=== PATIENT | female | born 1965 ===

== ENCOUNTER 2017-05-13 13:42 | Emergency (ER) | payer MEDICAID, OTHER ==
[2017-05-13 13:45] VITALS: BMI 45.7
[2017-05-13 13:59] VITALS: RESP 20
[2017-05-13] MEDS ORDERED: Sodium Chloride 0.9% 1,000 ML IV STA (14:20)
[2017-05-13] MEDS ORDERED: Levalbuterol 1.25 MG/3 ML Inhal Soln UD IH STA ×2 (14:20→14:21)
[2017-05-13] MEDS ORDERED: Ipratropium 0.02% Inhal Soln (0.5 mg/2.5 ml) UD IH STA ×2 (14:21)
[2017-05-13] MEDS ORDERED: guaiFENesin 200 mg/10 ml Syrup UD PO STA (14:21)
--- NOTE | 2017-05-13 14:45 | ED PDOC ---
Arrival/HPI - General Chief Complaint: Shortness Of Breath Time Seen by Provider: 05/13/17 13:47 Historian: Patient - History of Present Illness Narrative History of Present Illness (Text): 05/13/17 14:12 52 year old female, whose past medical history includes asthma, diabetes, anxiety, and hypertension, presents to the emergency department complaining of weakness for 1 week. Patient also experiences nausea, vomiting (yesterday), diarrhea (on and off), throat pain, fever, cough, asthma, abdominal pain, chest tightness (which feels like asthma), and urinary output changes. Patient denies of any sick contacts, recent travel, dysuria, hematuria, or any other complaints or information at this time. Patient mentions she uses an inhaler and shortness of breath worsens when ambulating. Blood sugar last measured at 250. No PMD Past Medical History - Provider Review Nursing Documentation Reviewed: Yes - Travel History Have you recently traveled outside [place] w/in the past 3 mons?: No - Infectious Disease Hx of Infectious Diseases: None - Tetanus Immunization Tetanus Immunization: Unknown - Reproductive Menopause: Yes - Cardiac Hx Cardiac Disorders: Yes Hx Hypertension: Yes - Pulmonary Hx Respiratory Disorders: Yes Hx Asthma: Yes - Neurological Hx Neurological Disorder: No - HEENT Hx HEENT Disorder: No - Renal Hx Renal Disorder: No - Endocrine/Metabolic Hx Endocrine Disorders: Yes Hx Diabetes Mellitus Type 2: Yes - Hematological/Oncological Hx Blood Disorders: No - Integumentary Hx Dermatological Disorder: No - Musculoskeletal/Rheumatological Hx Musculoskeletal Disorders: No - Gastrointestinal Hx Gastrointestinal Disorders: No - Genitourinary/Gynecological Hx Genitourinary Disorders: No - Psychiatric Hx Psychophysiologic Disorder: Yes Hx Anxiety: Yes Hx Bipolar Disorder: No Hx Depression: Yes Hx Emotional Abuse: No Hx Hallucinations: No Hx Panic Disorder: No Hx Post Traumatic Stress Disorder: No Hx Psychosis: No Hx Physical Abuse: No Hx Schizophrenia: No Hx Sexual Abuse: No Hx Substance Use: No - Past Surgical History Past Surgical History: No Previous - Surgical History Hx Section: Yes - Anesthesia Hx Anesthesia: Yes Hx Anesthesia Reactions: No Hx Malignant Hyperthermia: No - Suicidal Assessment Feels Threatened In Home Enviroment: No Family/Social History - Physician Review Nursing Documentation Reviewed: Yes Family/Social History: No Known Family HX Smoking Status: Never Smoked Hx Alcohol Use: No Hx Substance Use: No Hx Substance Use Treatment: No Allergies/Home Meds Allergies/Adverse Reactions: Allergies No Known Allergies Allergy (Verified 09/05/16 11:16) Home Medications: Home Meds Medication Instructions Recorded Confirmed Quetiapine Fumarate [Seroquel] 200 mg PO HS 04/27/12 05/13/17 Montelukast [Singulair] 10 mg PO DAILY 09/08/13 05/13/17 Metformin HCl [Fortamet] 1,000 mg PO BID 09/04/15 05/13/17 clonazePAM [Klonopin] 1 tab PO HS 09/04/15 05/13/17 Clonazepam 1 mg PO DAILY 01/05/16 05/13/17 Sertraline [Zoloft] 50 mg PO HS 01/05/16 05/13/17 Review of Systems - Physician Review All systems were reviewed & negative as marked: Yes - Review of Systems Constitutional: Fevers, Other (weakness) ENT: Sore Throat (throat pain) Respiratory: SOB (worsens when ambulating), Cough Cardiovascular: Other (chest tight feeling like asthma). absent: Chest Pain Gastrointestinal: Abdominal Pain, Diarrhea (on and off diarrhea), Nausea, Vomiting (vomited yesterday) Genitourinary Female: Frequency. absent: Dysuria, Hematuria Skin: absent: Rash Neurological: absent: Headache Endocrine: absent: Diaphoresis Hemo/Lymphatic: absent: Adenopathy Physical Exam Vital Signs Reviewed: Yes Vital Signs Temp Pulse Resp BP Pulse Ox 05/13/17 13:43 98 F 87 20 132/95 H 99 Temperature: Afebrile Blood Pressure: Normal Pulse: Regular Respiratory Rate: Normal Appearance: Positive for: Well-Appearing, Non-Toxic Pain Distress: None Mental Status: Positive for: Alert and Oriented X 3 Finger Stick Blood Glucose: 148 - Systems Exam Head: Present: Atraumatic, Normocephalic Pupils: Present: PERRL Conjunctiva: Present: Normal Mouth: Present: Moist Mucous Membranes Pharnyx: Present: Normal. No: ERYTHEMA, EXUDATE Neck: Present: Normal Range of Motion Respiratory/Chest: Present: Wheezes (wheezing b/l diffusely) Cardiovascular: Present: Regular Rate and Rhythm, Normal S1, S2. No: Murmurs Abdomen: Present: Tenderness (mild tender to palpation to RUQ, RLQ, and LUQ on initial exam) Back: Present: Normal Inspection Upper Extremity: Present: Normal Inspection. No: Cyanosis, Edema Lower Extremity: Present: Normal Inspection. No: Edema Neurological: Present: GCS=15, CN II-XII Intact, Speech Normal Skin: Present: Warm, Dry, Normal Color. No: Rashes Psychiatric: Present: Alert, Oriented x 3, Normal Insight, Normal Concentration Medical Decision Making ED Course and Treatment: 05/13/17 14:18 Impression: 52 year old female with weakness, nausea, vomiting, diarrhea, fever , abdominal pain, and shortness of breath. Physical exam shows diffuse wheezing b/l; abdominal exam with mild ttp Plan: -- EKG -- Chest X-ray -- Labs -- Pepcid -- Robitussin -- Atrovert -- Xopenex -- Zofran -- Medrol -- IV Fluids -- Blodo Culture -- Urine Culture -- Urinalysis -- Reassess and disposition Prior Visits: Notes and results from previous visits were reviewed. Patient was last seen in the emergency department on 09/05/2016 for left elbow pain. Patient was discharged home. Progress Notes: EKG: Ordered, reviewed, and independently interpreted the EKG. Rate : 92 BPM Rhythm : NSR Interpretation : No ST-segment elevations or depressions, no T-wave inversions, normal intervals. Comparison : No previous EKG for comparison. 05/13/17 16:02 Patient's lungs clear to auscultation and abdomen is soft, nontender. Patient has no complaints at this time and reports resolution of abd pain and sob. 05/13/2017 16:21 Chest X-ray IMPRESSION: No active disease. Dictator: Daniel Darling MD 05/13/17 17:03 Patient with noted history with presentation of n/v/d and abdominal cramping. Labs are unremarkable. Given zofran, pepcid, and IVF as well as treatment for asthma, and patient experiencing full resolution of symptoms with entirely normal lung exam and resolution of any abdominal discomfort. Chest tightness was associated with cough and asthma symptoms and resolved with nebs with normal ekg and normal CE; doubt cardiac - will d/c home to f/u in the medical clinic and give script for prednisone and MDI, along with zantac and zofran PRN. - Lab Interpretations Lab Results: 05/13/17 14:00 05/13/17 14:00 Lab Results 05/13/17 15:25: Urine Color Yellow, Urine Appearance Clear, Urine pH 6.0, Ur Specific [place] 1.020, Urine Protein Negative, Urine Glucose (UA) >=1000, Urine Ketones Negative, Urine Blood Negative, Urine Nitrate Negative, Urine Bilirubin Negative, Urine Urobilinogen 0.2, Ur Leukocyte Esterase Negative 05/13/17 14:00: Sodium 141, Potassium 3.7, Chloride 104, Carbon Dioxide 21, Anion Gap 20, BUN 14, Creatinine 0.6 L, Est GFR ( Amer) > 60, Est GFR ( Non-Af Amer) > 60, Random Glucose 166 H, Calcium 9.5, Magnesium 1.5 L, Total Bilirubin 0.6, Direct Bilirubin 0.3, AST 32, ALT 29, Alkaline Phosphatase 86, Lactate Dehydrogenase 489, Total Creatine Kinase 77, Troponin I < 0.01, NT-Pro- B Natriuret Pep 40.3, Total Protein 7.2, Albumin 4.4, Globulin 2.9, Albumin/ Globulin Ratio 1.5, Lipase 91 05/13/17 14:00: PT 12.5 H, INR 1.16 H, APTT 28.9 05/13/17 14:00: WBC 6.5 D, RBC 5.19, Hgb 14.3, Hct 41.8, MCV 80.5, MCH 27.6, MCHC 34.2, RDW 14.2, Plt Count 262, MPV 10.2, Gran % 60.2, Lymph % (Auto) 33.6, [place] % (Auto) 5.4, Eos % (Auto) 0.6 L, Baso % (Auto) 0.2, Gran # 3.89, Lymph # 2.2, [place] # 0.4, Eos # 0.0, Baso # 0.01 05/13/17 13:55: POC Glucose (mg/dL) 148 H I have reviewed the lab results: Yes - RAD Interpretation Radiology Orders: 05/13/17 14:19 CHEST PORTABLE [RAD] Stat - Medication Orders Current Medication Orders: Discontinued Medications Famotidine (Pepcid) 20 mg IVP STAT STA Stop: 05/13/17 14:21 Last Admin: 05/13/17 14:43 Dose: 20 mg IVP Administration Document 05/13/17 14:43 SRE (Rec: 05/13/17 14:43 SRE [id number]) Charges for Administration # of IVP Administrations 1 Guaifenesin (Robitussin) 400 mg PO ONCE STA Stop: 05/13/17 14:22 Last Admin: 05/13/17 14:44 Dose: 400 mg Sodium Chloride (Sodium Chloride 0.9%) 1,000 mls @ 999 mls/hr IV .Q1H1M STA Stop: 05/13/17 15:20 Last Admin: 05/13/17 14:43 Dose: 999 mls/hr eMAR Start Stop Document 05/13/17 14:43 SRE (Rec: 05/13/17 14:43 SRE [id number]) Intravenous Solution Start Date 05/13/17 Start Time 14:43 End Date 05/13/17 End time 15:45 Total Infusion Time 62 Magnesium Sulfate 2 gm/ Sodium (Chloride) 104 mls @ 102 mls/hr IVPB ONCE STA Stop: 05/13/17 16:26 Last Admin: 05/13/17 15:39 Dose: 102 mls/hr eMAR Start Stop Document 05/13/17 15:39 SRE (Rec: 05/13/17 15:39 SRE [id number]) Intravenous Solution Start Date 05/13/17 Start Time 15:39 End Date 05/13/17 End time 16:40 Total Infusion Time 61 Ipratropium [place] (Atrovent) 0.5 mg IH STAT STA Stop: 05/13/17 14:22 Last Admin: 05/13/17 15:08 Dose: 0.5 mg Ipratropium [place] (Atrovent) 0.5 mg IH STAT STA Stop: 05/13/17 14:22 Last Admin: 05/13/17 14:44 Dose: 0.5 mg Levalbuterol HCl (Xopenex) 1.25 mg IH STAT STA Stop: 05/13/17 14:21 Last Admin: 05/13/17 15:08 Dose: 1.25 mg Levalbuterol HCl (Xopenex) 1.25 mg IH STAT STA Stop: 05/13/17 14:22 Last Admin: 05/13/17 14:44 Dose: 1.25 mg Methylprednisolone (Solu-Medrol) 125 mg IVP STAT STA Stop: 05/13/17 14:20 Last Admin: 05/13/17 14:45 Dose: 125 mg IVP Administration Document 05/13/17 14:45 SRE (Rec: 05/13/17 14:45 SRE [id number]) Charges for Administration # of IVP Administrations 1 Ondansetron HCl (Zofran Inj) 4 mg IVP STAT STA Stop: 05/13/17 14:21 Last Admin: 05/13/17 14:45 Dose: 4 mg IVP Administration Document 05/13/17 14:45 SRE (Rec: 05/13/17 14:45 SRE [id number]) Charges for Administration # of IVP Administrations 1 - Scribe Statement The provider has reviewed the documentation as recorded by the Danica Escudero Provider Scribe Attestation: All medical record entries made by the Scribe were at my direction and personally dictated by me. I have reviewed the chart and agree that the record accurately reflects my personal performance of the history, physical exam, medical decision making, and the department course for this patient. I have also personally directed, reviewed, and agree with the discharge instructions and disposition. Disposition/Present on Arrival - Present on Arrival Any Indicators Present on Arrival: No History of DVT/PE: No History of Uncontrolled Diabetes: No Urinary Catheter: No History of Decub. Ulcer: No History Surgical Site Infection Following: None - Disposition Have Diagnosis and Disposition been Completed?: Yes Diagnosis: Asthma exacerbation, Nausea, vomiting, and diarrhea Disposition: HOME/ ROUTINE Disposition Time: 17:10 Patient Plan: Discharge Condition: GOOD Discharge Instructions (ExitCare): Acute Nausea and Vomiting (ED), Abdominal Pain (ED), Acute Diarrhea (ED), Asthma (ED) Additional Instructions: Advance diet slowly as tolerated. Take the medications as prescribed. Drink plenty of fluids. Follow up in the medical clinic. Return to the emergency department if any new concerning symptoms. Prescriptions: Albuterol HFA [Ventolin HFA 90 mcg/actuation (8 g)] 2 puff IH Q4H #1 inhaler Ondansetron ODT [Zofran ODT] 1 tab PO Q8H PRN #6 odt PRN Reason: Nausea/Vomiting predniSONE [Prednisone] 2 tab PO DAILY #10 tab Ranitidine HCl [Zantac] 1 tab PO BID #30 tablet Referrals: [facility] [place]] - Follow up with primary Forms: [employer] (Croatian)
[2017-05-13 15:04] LABS: BASO # 0.01 K/mm3 (0.0-2.0); BASO % 0.2 % (0.0-3.0); EOS % 0.6 % (1.5-5.0); GRAN # 3.89 (1.4-6.5); GRAN % 60.2 % (50.0-68.0); HEMATOCRIT 41.8 % (36.0-48.0); INR 1.16 (0.93-1.08); LYMPH # 2.2 (1.2-3.4); LYMPH % 33.6 % (22.0-35.0); MEAN CELL VOLUME 80.5 fl (80.0-105.0); MEAN CORPUSCULAR HEMOGLOBIN 27.6 pg (25.0-35.0); MEAN CORPUSCULAR HGB CONC 34.2 g/dl (31.0-37.0); MEAN PLATELET VOLUME 10.2 fl (7.0-11.0); MONO # 0.4 (0.1-0.6); MONO % 5.4 % (1.0-6.0); PARTIAL THROMBOPLASTIN TIME 28.9 Seconds (23.7-30.8); RED CELL DISTRIBUTION WIDTH 14.2 % (11.5-14.5); WHITE BLOOD COUNT 6.5 10^3/ul (4.5-11.0)
[2017-05-13 15:05] LABS: ALB/GLOB RATIO 1.5 (1.1-1.8); ALKALINE PHOSPHATASE 86 U/L (38-126); ALT/SGPT 29 U/L (7-56); AST/SGOT 32 U/L (14-36); BILIRUBIN,DIRECT 0.3 mg/dL (0.0-0.4); BILIRUBIN,TOTAL 0.6 mg/dL (0.2-1.3); BLOOD UREA NITROGEN 14 mg/dL (7-21); CALCIUM 9.5 mg/dL (8.4-10.5); CARBON DIOXIDE 21 mmol/L (21-33); CHLORIDE 104 mmol/L (98-107); GFR AFRICAN-AMERICAN > 60; GLUCOSE,RANDOM 166 mg/dL (70-110); LIPASE 91 U/L (23-300); MAGNESIUM 1.5 mg/dL (1.7-2.2); POTASSIUM 3.7 mmol/L (3.6-5.0); SODIUM 141 mmol/L (132-148); TOTAL PROTEIN 7.2 g/dL (5.8-8.3)
[2017-05-13 15:17] LABS: TROPONIN I < 0.01 ng/mL
[2017-05-13] MEDS ORDERED: Magnesium Sulfate 2 GM in Sodium Chloride 0.9% 100 ML IVPB STA (15:25)
[2017-05-13 15:45] LABS: URINE BILIRUBIN NEGATIVE (NEGATIVE); URINE BLOOD NEGATIVE (NEGATIVE); URINE GLUCOSE (UA) >=1000 mg/dL (NEGATIVE); URINE KETONE NEGATIVE (NEGATIVE); URINE LEUKOCYTE ESTERASE NEGATIVE Leu/uL (NEGATIVE); URINE PROTEIN NEGATIVE mg/dL (<30 mg/dL); URINE UROBILINOGEN 0.2 E.U./dL (<1 E.U./dL)
[2017-05-13 16:03] LABS: URINE APPEARANCE CLEAR (CLEAR); URINE COLOR YELLOW (YELLOW)
--- NOTE | 2017-05-13 16:23 | RAD ---
HISTORY: sob COMPARISON: 01/05/2016 FINDINGS: LUNGS: No active pulmonary disease. PLEURA: No significant pleural effusion identified, no pneumothorax apparent. CARDIOVASCULAR: Normal. OSSEOUS STRUCTURES: No significant abnormalities. VISUALIZED UPPER ABDOMEN: Normal. OTHER FINDINGS: None. IMPRESSION: No active disease.
[2017-05-13 17:11] VITALS: BP 112/71; PULSE 105; TEMP 98.1; O2SAT 96
--- NOTE | 2017-05-14 01:47 | CARD ---
APPROVED REPORT EKG Measurement Heart [id number] ID [id number] <Conclusion> Normal sinus rhythm Normal ECG
== END 2017-05-13 17:12 | disposition home or self-care (01) ==
LOC: ED 13:42
DX: J45.901 Unspecified asthma with (acute) exacerbation (principal); R11.2 Nausea with vomiting, unspecified; R19.7 Diarrhea, unspecified
CPT/HCPCS: 71010; 80053; 81003; 82248; 82550; 82948; 83615; 83690; 83735; 83880; 84484; 85025; 85610; 85730; 87040; 87086; 93005; 96361; 96365; 96375; 99284; J2405; J2930; J3475; J7040

== ENCOUNTER 2017-05-20 15:27 | Inpatient (IN) | payer MEDICAID ==
[2017-05-20] MEDS ORDERED: Sodium Chloride 0.9% 1,000 ML IV STA (16:02)
[2017-05-20] MEDS ORDERED: Albuterol-Ipratrop 3 mg / 0.5 (3 ml) UD IH STA (16:02)
[2017-05-20 16:17] LABS: BASO # 0.01 K/mm3 (0.0-2.0); BASO % 0.1 % (0.0-3.0); EOS # 0.1 (0.0-0.7); EOS % 0.7 % (1.5-5.0); GRAN # 5.57 (1.4-6.5); GRAN % 63.5 % (50.0-68.0); HEMATOCRIT 45.2 % (36.0-48.0); LYMPH # 2.4 (1.2-3.4); LYMPH % 27.9 % (22.0-35.0); MEAN CELL VOLUME 80.9 fl (80.0-105.0); MEAN CORPUSCULAR HGB CONC 33.4 g/dl (31.0-37.0); MEAN PLATELET VOLUME 9.7 fl (7.0-11.0); MONO # 0.7 (0.1-0.6); MONO % 7.8 % (1.0-6.0); RED CELL DISTRIBUTION WIDTH 14.8 % (11.5-14.5); WHITE BLOOD COUNT 8.8 10^3/ul (4.5-11.0)
[2017-05-20 16:30] LABS: INR 1.61 (0.93-1.08); PARTIAL THROMBOPLASTIN TIME 30.3 Seconds (23.7-30.8)
[2017-05-20 16:36] LABS: ALB/GLOB RATIO 1.6 (1.1-1.8); ALKALINE PHOSPHATASE 68 U/L (38-126); ALT/SGPT 26 U/L (7-56); AST/SGOT 37 U/L (14-36); BILIRUBIN,TOTAL 0.7 mg/dL (0.2-1.3); BLOOD UREA NITROGEN 17 mg/dL (7-21); CALCIUM 9.3 mg/dL (8.4-10.5); CARBON DIOXIDE 26 mmol/L (21-33); CHLORIDE 102 mmol/L (98-107); GFR AFRICAN-AMERICAN > 60; GLUCOSE,RANDOM 111 mg/dL (70-110); SODIUM 142 mmol/L (132-148)
[2017-05-20 16:45] LABS: ARTERIAL BLOOD GAS HCO3 25.9 mmol/L (21-28); ARTERIAL BLOOD GAS PH 7.42 (7.35-7.45)
[2017-05-20 16:50] LABS: TROPONIN I < 0.01 ng/mL
--- NOTE | 2017-05-20 16:57 | RAD ---
HISTORY: nausea COMPARISON: 05/13/2017 FINDINGS: LUNGS: No active pulmonary disease. PLEURA: No significant pleural effusion identified, no pneumothorax apparent. CARDIOVASCULAR: Mild cardiomegaly -unchanged OSSEOUS STRUCTURES: No significant abnormalities. VISUALIZED UPPER ABDOMEN: Normal. OTHER FINDINGS: None. IMPRESSION: No active pulmonary disease. Similar mild cardiomegaly
--- NOTE | 2017-05-20 17:21 | ED PDOC ---
Arrival/HPI - General Chief Complaint: GI Problem Time Seen by Provider: 05/20/17 15:45 Historian: Patient, Pr Manager - History of Present Illness Narrative History of Present Illness (Text): 05/20/17 17:21 Patient is a 52 yo female, past medical history of diabetes, presents to the ED complaining of "two weeks" of intermittent nausea. States that she has been vomiting continuously since this AM and it has been intermittent over the past several weeks. Reports shortness of breath as well intermitently. She denies feeling depressed or anxious. She denies any chest pain. Denies leg pain or swelling. Denies pleuritic pain. She reports occasional "acid" feeling in upper abdomen when she feels nauseous. This is not associated with exertion. Patient does report some dysuria and frequency for several days. No back or flank pain. Past Medical History - Infectious Disease Hx of Infectious Diseases: None - Tetanus Immunization Tetanus Immunization: Unknown - Reproductive Menopause: No - Cardiac Hx Cardiac Disorders: Yes Hx Hypertension: Yes - Pulmonary Hx Respiratory Disorders: Yes Hx Asthma: Yes - Neurological Hx Neurological Disorder: No - HEENT Hx HEENT Disorder: No - Renal Hx Renal Disorder: No - Endocrine/Metabolic Hx Endocrine Disorders: Yes Hx Diabetes Mellitus Type 2: Yes - Hematological/Oncological Hx Blood Disorders: No - Integumentary Hx Dermatological Disorder: No - Musculoskeletal/Rheumatological Hx Musculoskeletal Disorders: No - Gastrointestinal Hx Gastrointestinal Disorders: No - Genitourinary/Gynecological Hx Genitourinary Disorders: No - Psychiatric Hx Psychophysiologic Disorder: Yes Hx Anxiety: Yes Hx Bipolar Disorder: No Hx Depression: Yes Hx Emotional Abuse: No Hx Hallucinations: No Hx Panic Disorder: No Hx Post Traumatic Stress Disorder: No Hx Psychosis: No Hx Physical Abuse: No Hx Schizophrenia: No Hx Sexual Abuse: No Hx Substance Use: No - Past Surgical History Past Surgical History: No Previous - Surgical History Hx Section: Yes - Anesthesia Hx Anesthesia: Yes Hx Anesthesia Reactions: No Hx Malignant Hyperthermia: No - Suicidal Assessment Feels Threatened In Home Enviroment: No Family/Social History Family/Social History: Unknown Family HX Smoking Status: Never Smoked Hx Alcohol Use: No Hx Substance Use: No Hx Substance Use Treatment: No Allergies/Home Meds Allergies/Adverse Reactions: Allergies No Known Allergies Allergy (Verified 09/05/16 11:16) Home Medications: Home Meds Medication Instructions Recorded Confirmed Albuterol HFA [Ventolin HFA 90 60 mcg PO DAILY 05/20/17 05/20/17 mcg/actuation (8 g)] Benzonatate 200 mg PO DAILY 05/20/17 05/20/17 Citalopram [celeXA] 20 mg PO BID 05/20/17 05/20/17 Empagliflozin [Jardiance] 10 mg PO DAILY 05/20/17 05/20/17 Fluticasone Propionate [Flovent 50 mcg IH DAILY 05/20/17 05/20/17 Diskus] Fluticasone Propionate [Flovent 0.22 mg IH BID 05/20/17 05/20/17 Hfa] Loratadine [Claritin] 10 mg PO DAILY 05/20/17 05/20/17 Lovastatin 40 mg PO DAILY 05/20/17 05/20/17 Metformin HCl [Glucophage] 500 mg PO TID 05/20/17 05/20/17 Montelukast [Singulair] 10 mg PO DAILY 05/20/17 05/20/17 Ondansetron [Zofran] 4 mg PO DAILY 05/20/17 05/20/17 QUEtiapine [SEROquel] 50 mg PO HS 05/20/17 05/20/17 QUEtiapine [SEROquel] 200 mg PO HS 05/20/17 05/20/17 Ranitidine HCl [Zantac 300] 300 mg PO DAILY 05/20/17 05/20/17 clonazePAM [clonAZEPAM] 1 mg PO HS 05/20/17 05/20/17 Review of Systems - Review of Systems Constitutional: Fatigue. absent: Fevers Eyes: absent: Vision Changes ENT: absent: Hearing Changes Respiratory: SOB. absent: Cough Cardiovascular: absent: Chest Pain, MCNULTY Gastrointestinal: Nausea, Vomiting, Other ("acid"). absent: Abdominal Pain, Constipation, Diarrhea Genitourinary Female: Dysuria, Frequency. absent: Hematuria, Urine Output Changes, Vaginal Bleeding, Vaginal Discharge Musculoskeletal: absent: Back Pain Skin: absent: Rash Neurological: absent: Dizziness, Focal Weakness Endocrine: absent: Polyuria Hemo/Lymphatic: absent: Easy Bleeding Psychiatric: absent: Anxiety, Depression, Suicidal Ideation Physical Exam Vital Signs Reviewed: Yes Vital Signs Temp Pulse Resp BP Pulse Ox 05/20/17 18:46 82 18 136/68 97 05/20/17 15:34 98.7 F 80 18 132/65 94 L Temperature: Afebrile Respiratory Rate: Tachypneic Appearance: Positive for: Ill-Appearing Pain Distress: Moderate Mental Status: Positive for: Alert and Oriented X 3 Finger Stick Blood Glucose: 106 - Systems Exam Head: Present: Atraumatic, Normocephalic Pupils: Present: PERRL Mouth: Present: Moist Mucous Membranes Pharnyx: No: ERYTHEMA Nose (Internal): Present: Normal Inspection Neck: Present: Normal Range of Motion Respiratory/Chest: Present: Clear to Auscultation, Tachypneic. No: Respiratory Distress, Wheezes Cardiovascular: Present: Regular Rate and Rhythm, Murmurs Abdomen: Present: Tenderness (very mild periumbilical tenderness no rebound or guarding) Rectal: No: Gross Blood Back: No: CVA Tenderness Upper Extremity: No: Cyanosis, Edema Lower Extremity: No: Edema, CALF TENDERNESS Neurological: Present: Motor Func Grossly Intact, Normal Sensory Function Skin: Present: Warm Psychiatric: Present: Alert. No: Depressed Mood, Suicidal Ideation, Homicidal Ideation Medical Decision Making ED Course and Treatment: Patient on initial examination is tachypneic, nauseous. Her abdomen is soft and nontender. No wheezing noted on exam but patient complains of "asthma" in the past. She has no chest pain or pleuritic discomfort. No leg pain or swelling. Denies history of cardiac disease. Denies exertional symptoms. She is afebrile. With iv fluids and zofran symptoms improved but persisted. ABG reviewed. No respiratory distress noted on reexam. Tachypnea improved. Patient's lactate is elevated. On re-exam, very minimal mid abdominal discomfort. Review of last ER visit reveals patient had positive urine culture. Patient states she took her antibiotic course to completion. UA ordered here in ED. VBG lacatate also elevated. CODE SEPSIS initiated as suspicion of infection, hx of recent UTI, hx of tachypnea and elevated lactate. IV fluids continued and iv antibiotics initated. On re-exam, she states she has no pain. On re-exam, she states that she currently has no cough or chest pain, and shortness of breath has resolved and she wishes to go home. 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 Abnormal presentation and labs and patient's risk factors for infection, sepsis , and cardiac/pulmonary disease reviewed with patient, and she is agreeable to admisison. Case d/w hospitalist, accepts admission to her service. On re-evaluation, she states her nausea and shortness of breath have completely resolved. Patient's prior urine culture from 05/13 reviewed. Patient states she completed her ciprofloxacin prescription. She complains of persistent dysuria. No flank pain on exam. Review of urine micro from previous ER visit reveals sensitivity to Meropenam, this was ordered in ED. Patient noted to ambulate to restroom without difficulty. Walking back from bathroom she became nauseous and tachypneic. Lungs were clear. Blood pressure stable. She denied chest pain. I repeated EKG and this reveals normal sinus rhythm with no acute st elevations at 18:07. I will admit her to telemetry bed for also cardiac monitoring in addition to evaluation and treatment for sepsis. Blood pressure remains stable. I reviewed echo reading from 2016, patient at that time with normal LV function. BNP unremarkable. NO back pain. No leg pain or swelling. No smoking history. No prolonged travel or immobilization. Suspect sepsis, will monitor and evaluate for atypical cardiac presentation. Abdomen remains soft and nontender. Will obtain CT abdomen to assess for gi pathology/pyelo. Additional zofran ordered. At 1825, dyspnea again resolved. No chest pain or abdominal pain. CT abdomen results endorsed to admitting team for follow-up of results at 1826. Code sepsis team present in ED. CT angio of chest ordered to evaluate for PE due to persistent dyspnea with clear lung exam. She denies allergies. CT endorsed to admitting team. Case discussed with on-call Dr. Ragsdale, for cardiology consultation given her current presentation, to evaluation for CAD, valvular disease, pericardial effusion. No hypotension noted. Abdomen remains soft and nontender. Patient evaluated by cardiology in ED. - Lab Interpretations Lab Results: 05/20/17 16:05 05/20/17 16:05 Lab Results 05/20/17 17:45: Urine Color Yellow, Urine Appearance Sl cloudy, Urine pH 6.5, Ur Specific [place] 1.020, Urine Protein Trace H, Urine Glucose (UA) >=1000, Urine Ketones Negative, Urine Blood Small H, Urine Nitrate Negative, Urine Bilirubin Negative, Urine Urobilinogen 0.2, Ur Leukocyte Esterase Small H, Urine RBC 1 - 3, Urine WBC 10 - 15, Ur Epithelial Cells 6 - 8, Urine Bacteria Many 05/20/17 17:15: pO2 33, VBG pH 7.35, VBG pCO2 53.0, VBG HCO3 29.3 H, VBG Total CO2 30.9 H, VBG O2 Sat (Calc) 67.5 H, VBG Base Excess 2.5 H, VBG Potassium 3.9, Glucose 131 H, Lactate 3.6 H, FiO2 21.0, Sodium 140.0, Chloride 104.0, Venous Blood Potassium 3.9 05/20/17 16:42: pCO2 40, pO2 68.0 L, HCO3 25.9, ABG pH 7.42, ABG Total CO2 27.1 , ABG O2 Saturation 95.8, ABG Base Excess 1.3, ABG Potassium 3.3 L, Glucose 135 H, Lactate 3.9 H, FiO2 21.0, Sodium 141.0, Chloride 106.0, Arterial Blood Potassium 3.3 L 05/20/17 16:05: Phosphorus 4.2, Magnesium 1.8 05/20/17 16:05: Sodium 142, Potassium 4.0, Chloride 102, Carbon Dioxide 26, Anion Gap 18, BUN 17, Creatinine 0.8, Est GFR ( Amer) > 60, Est GFR (Non- Af Amer) > 60, Random Glucose 111 H, Calcium 9.3, Total Bilirubin 0.7, AST 37 H , ALT 26, Alkaline Phosphatase 68, Lactate Dehydrogenase 535, Total Creatine Kinase 44, Troponin I < 0.01, NT-Pro-B Natriuret Pep 27.7, Total Protein 7.0, Albumin 4.3, Globulin 2.7, Albumin/Globulin Ratio 1.6 05/20/17 16:05: PT 17.4 H, INR 1.61 H, APTT 30.3 05/20/17 16:05: WBC 8.8 D, RBC 5.59, Hgb 15.1, Hct 45.2, MCV 80.9, MCH 27.0, MCHC 33.4, RDW 14.8 H, Plt Count 300, MPV 9.7, Gran % 63.5, Lymph % (Auto) 27.9 , Saline % (Auto) 7.8 H, Eos % (Auto) 0.7 L, Baso % (Auto) 0.1, Gran # 5.57, Lymph # 2.4, Saline # 0.7 H, Eos # 0.1, Baso # 0.01 - RAD Interpretation Radiology Orders: 05/20/17 16:01 CHEST PORTABLE [RAD] Stat - EKG Interpretation Interpreted by ED Physician: Yes Type: 12 lead EKG - Medication Orders Current Medication Orders: Albuterol/Ipratropium (Duoneb 3 Mg/0.5 Mg (3 Ml) Ud) 3 ml IH Q4 PRN PRN Reason: Shortness of Breath Atorvastatin Calcium (Lipitor) 10 mg PO DIN MAJO Benzonatate (Tessalon Perles) 200 mg PO DAILY MAJO Citalopram Hydrobromide (Celexa) 20 mg PO BID MAJO Clonazepam (Klonopin) 1 mg PO HS MAJO PRN Reason: Protocol Famotidine (Pepcid) 40 mg PO DAILY MAJO Meropenem 1g/NS 100mL IVPB (Meropenem 1g/Ns 100ml Ivpb) 1 gm in 100 mls @ 100 mls/hr IVPB STAT STA PRN Reason: Protocol Stop: 05/20/17 19:08 Last Admin: 05/20/17 18:52 Dose: 100 mls/hr eMAR Start Stop Document 05/20/17 18:52 MS (Rec: 05/20/17 18:53 MS [id number]) Intravenous Solution Start Date 05/20/17 Start Time 18:53 End Date 05/20/17 End time 19:53 Total Infusion Time 60 Insulin Human Lispro (Humalog Low) 0 units SC ACHS MAJO PRN Reason: Protocol Loratadine (Claritin) 10 mg PO DAILY MAJO Montelukast Sodium (Singulair) 10 mg PO DAILY MAJO Non-Formulary Medication (Fluticasone Propionate [Flovent Hfa]) 0.22 mg IH BID MAJO Ondansetron HCl (Zofran Tab) 4 mg PO DAILY MAJO Pantoprazole Sodium (Protonix Inj) 40 mg IVP DAILY MAJO Quetiapine Fumarate (Seroquel) 200 mg PO HS MAJO Discontinued Medications Albuterol/Ipratropium (Duoneb 3 Mg/0.5 Mg (3 Ml) Ud) 3 ml IH STAT STA Stop: 05/20/17 16:03 Last Admin: 05/20/17 16:15 Dose: 3 ml Sodium Chloride (Sodium Chloride 0.9%) 1,000 mls @ 1,000 mls/hr IV .Q1H STA Stop: 05/20/17 17:01 Last Admin: 05/20/17 16:14 Dose: 1,000 mls/hr eMAR Start Stop Document 05/20/17 16:14 MR (Rec: 05/20/17 16:14 [id number]) Intravenous Solution Start Date 05/20/17 Start Time 16:14 End Date 05/20/17 End time 17:14 Total Infusion Time 60 Sodium Chloride 1,900 ml/ IV (SUPPLIES) 1,900 mls @ 5,932.98 mls/hr IV ONCE ONE PRN Reason: 60 ML/KG/HR Stop: 05/20/17 18:06 Last Admin: 05/20/17 18:19 Dose: 5,932.98 mls/hr eMAR Start Stop Document 05/20/17 18:19 MR (Rec: 05/20/17 18:19 [id number]) Intravenous Solution Start Date 05/20/17 Start Time 18:19 End Date 05/20/17 End time 18:40 Total Infusion Time 21 Ondansetron HCl (Zofran Inj) 4 mg IVP ONCE ONE Stop: 05/20/17 16:03 Last Admin: 05/20/17 16:14 Dose: 4 mg IVP Administration Document 05/20/17 16:14 MR (Rec: 05/20/17 16:14 [id number]) Charges for Administration # of IVP Administrations 1 Ondansetron HCl (Zofran Inj) 4 mg IVP ONCE ONE Stop: 05/20/17 18:04 Last Admin: 05/20/17 18:19 Dose: 4 mg IVP Administration Document 05/20/17 18:19 MR (Rec: 05/20/17 18:19 [id number]) Charges for Administration # of IVP Administrations 1 Disposition/Present on Arrival - Present on Arrival Any Indicators Present on Arrival: No History of DVT/PE: No History of Uncontrolled Diabetes: No Urinary Catheter: No History of Decub. Ulcer: No History Surgical Site Infection Following: None - Disposition Have Diagnosis and Disposition been Completed?: Yes Diagnosis: UTI (urinary tract infection), Sepsis, Vomiting, Dyspnea Disposition: HOSPITALIZED Disposition Time: 17:20 Patient Plan: Admission, Telemetry Patient Problems: Current Active Problems Problem Status Onset Dyspnea Acute Sepsis Acute UTI (urinary tract infection) Acute Vomiting Acute Condition: SERIOUS
[2017-05-20 17:23] LABS: VENOUS BLOOD GAS BASE EXCESS 2.5 mmol/L (0.0-2.0); VENOUS BLOOD PH 7.35 (7.32-7.43)
[2017-05-20] MEDS ORDERED: levoFLOXacin 750 mg in D5W 150 ML BAG IVPB STA (17:45)
[2017-05-20 18:04] LABS: PH,URINE 6.5 (4.7-8.0); URINE BILIRUBIN NEGATIVE (NEGATIVE); URINE BLOOD SMALL (NEGATIVE); URINE GLUCOSE (UA) >=1000 mg/dL (NEGATIVE); URINE KETONE NEGATIVE (NEGATIVE); URINE LEUKOCYTE ESTERASE SMALL Leu/uL (NEGATIVE); URINE PROTEIN TRACE mg/dL (<30 mg/dL); URINE UROBILINOGEN 0.2 E.U./dL (<1 E.U./dL)
[2017-05-20 18:06] LABS: URINE APPEARANCE SL CLOUDY (CLEAR); URINE COLOR YELLOW (YELLOW)
[2017-05-20] MEDS ORDERED: Meropenem 1g/NS 100mL IVPB 1 GM/100 ML PIGGYBACK IVPB STA ×2 (18:07→18:09)
[2017-05-20 18:20] LABS: URINE BACTERIA MANY (NEG)
[2017-05-20 18:24] LABS: MAGNESIUM 1.8 mg/dL (1.7-2.2); PHOSPHOROUS 4.2 mg/dL (2.5-4.5)
[2017-05-20] MEDS ORDERED: Albuterol-Ipratrop 3 mg / 0.5 (3 ml) UD IH PRN (18:55)
--- NOTE | 2017-05-20 19:04 | CARD ---
APPROVED REPORT EKG Measurement Heart [id number] <Conclusion> Normal sinus rhythm Normal ECG
--- NOTE | 2017-05-20 19:08 | CP.PCM.HP ---
<Chetan Henao - Last Filed: 05/20/17 19:27> History of Present Illness - History of Present Illness History of Present Illness: This is a 52 year old with a past medical history of hyperlipidemia, copd, type 2 diabetes mellitus and unspecified psych history who presents to the emergency department complaining of two weeks of nausea and multiple non-bloody, non- bilious vomiting episodes. The patient in conjunction with the the initial complaints reports acid reflux that's not associated with food intake. The patient reports taking Ranitidine with some relief. The patient also reports diffuse abdominal pain that she rates a 5/10 in severity. The patient denies any alleviating or modifying factors. The patient also reports dyspnea on exertion that's been occurring since the past two weeks. The patient reports she usually can walk twenty or thirty minutes without stopping. The patient now reports having to pause after a couple of blocks. The patient denies any fevers, chills, chest pain, lightheadedness, dizziness, changes in vision, sore throat, headache, syncopal episodes, orthopnea, lower extremity swelling or any other complaints. PMD: Dr. Young PMedhx: See HPI Medications: Metformin, Loratadine, Jardiance, Singular, Lovastatin, Ranitidine , Benzonatate, Ondansetron, Seroquel, Clonazepam and Citalopram Surgery hx: 2 sections, Umbilical hernia repair Allergies: Seasonal Social: Denies social or smoking history. Denies illicit drug use. Present on Admission - Present on Admission Any Indicators Present on Admission: No Review of Systems - Constitutional Constitutional: As Per HPI - EENT Eyes: As Per HPI Ears: As Per HPI Nose/Mouth/Throat: As Per HPI - Breasts Breasts: As Per HPI - Cardiovascular Cardiovascular: As Per HPI - Respiratory Respiratory: As Per HPI - Gastrointestinal Gastrointestinal: As Per HPI - Genitourinary Genitourinary: As Per HPI - Reproductive: Female Reproductive:Female: As Per HPI - Menstruation Menstruation: As Per HPI - Musculoskeletal Musculoskeletal: As Per HPI - Integumentary Integumentary: As Per HPI - Neurological Neurological: As Per HPI - Psychiatric Psychiatric: As Per HPI - Endocrine Endocrine: As Per HPI Past Patient History - Infectious Disease Hx of Infectious Diseases: None - Tetanus Immunizations Tetanus Immunization: Unknown - Past Social History Smoking Status: Never Smoked - CARDIAC Hx Cardiac Disorders: Yes Hx Hypertension: Yes - PULMONARY Hx Respiratory Disorders: Yes Hx Asthma: Yes - NEUROLOGICAL Hx Neurological Disorder: No - HEENT Hx HEENT Problems: No - RENAL Hx Chronic Kidney Disease: No - ENDOCRINE/METABOLIC Hx Endocrine Disorders: Yes Hx Diabetes Mellitus Type 2: Yes - HEMATOLOGICAL/ONCOLOGICAL Hx Blood Disorders: No - INTEGUMENTARY Hx Dermatological Problems: No - MUSCULOSKELETAL/RHEUMATOLOGICAL Hx Musculoskeletal Disorders: No - GASTROINTESTINAL Hx Gastrointestinal Disorders: No - GENITOURINARY/GYNECOLOGICAL Hx Genitourinary Disorders: No - PSYCHIATRIC Hx Psychophysiologic Disorder: Yes Hx Anxiety: Yes Hx Bipolar Disorder: No Hx Depression: Yes Hx Emotional Abuse: No Hx Hallucinations: No Hx Panic Symptoms: No Hx Post Traumatic Stress Disorder: No Hx Psychosis: No Hx Physical Abuse: No Hx Schizophrenia: No Hx Sexual Abuse: No Hx Substance Use: No - SURGICAL HISTORY Hx Section: Yes - ANESTHESIA Hx Anesthesia: Yes Hx Anesthesia Reactions: No Hx Malignant Hyperthermia: No Meds Allergies/Adverse Reactions: Allergies Allergy/AdvReac Type Severity Reaction Status Date / Time No Known Allergies Allergy Verified 09/05/16 11:16 Physical Exam - Head Exam Head Exam: ATRAUMATIC, NORMAL INSPECTION, NORMOCEPHALIC - Eye Exam Eye Exam: EOMI, Normal appearance, PERRL Pupil Exam: NORMAL ACCOMODATION, PERRL. absent: Irregular, Unequal - ENT Exam ENT Exam: Mucous Membranes Moist, Normal Exam. absent: TM's Normal Bilaterally - Neck Exam Neck exam: Positive for: Normal Inspection. Negative for: Lymphadenopathy, Thyromegaly - Respiratory Exam Respiratory Exam: Clear to Auscultation Bilateral, NORMAL BREATHING PATTERN. absent: Accessory Muscle Use, Chest Wall Tenderness, Respiratory Distress - Cardiovascular Exam Cardiovascular Exam: REGULAR RHYTHM, RRR, +S1, +S2. absent: Gallop, Rubs - GI/Abdominal Exam GI & Abdominal Exam: Normal Bowel Sounds, Tenderness. absent: Diminished Bowel Sounds, Hypoactive Bowel Sounds, Organomegaly - Rectal Exam Rectal Exam: NORMAL INSPECTION - Back Exam Back exam: NORMAL INSPECTION. absent: CVA tenderness (L), CVA tenderness (R), paraspinal tenderness - Neurological Exam Neurological exam: Alert, CN II-XII Intact, Normal Gait, Oriented x3, Reflexes Normal - Psychiatric Exam Psychiatric exam: Normal Affect, Normal Mood - Skin Skin Exam: Dry, Intact, Normal Color Results - Vital Signs Recent Vital Signs: Last Vital Signs Temp 98.7 F 05/20/17 15:34 Pulse 82 05/20/17 18:46 Resp 18 05/20/17 18:46 BP 136/68 05/20/17 18:46 Pulse Ox 97 05/20/17 18:46 - Labs Result Diagrams: 05/20/17 16:05 05/20/17 16:05 Assessment & Plan - Assessment and Plan (Free Text) Assessment: This is a 52 year old female with past medical history of hyperlipidemia, copd, type 2 diabetes and unspecified psych condition who is being admitted for dyspnea on exertion and sepsis. Plan: 1. UTI -Urine Culture at last visit grew Klebsiella. Patient started on IV Cefepime. -Blood cultures and urine cultures ordered. F/U with results tomorrow. -Lactic acid level 3.6. Recheck in the A.M. 2.SOB with exertion vs. anxiety -Patient has new onset SOB on exertion. -CXR in the E.D. was negative for any active disease. -CT angiography ordered. Will f/u with rec's tomorrow. -Cardio consulted. F/U with rec's tomorrow. 3.Abdominal pain 2/2 to vomiting -Zofran started. -Physical Exam diffused abdominal tenderness noted. Negative Naylor's sign. -Abdomen and pelvis Ct Ordered. Will f/u with rec's tomorrow. 4. Episodic Tachycardia -Per E.D. patient has episodes of Tachycardia. Patient presently not tachycardic. -Ekg shows NSR with no acute ST-T changes. -Cardio consulted. F/U with rec's tomorrow. 5. Hyperlipidemia -Continue home meds. 6.Diabetes -ISS -Accucheck ACHS GI ppx -Protonix DVT ppx -SCD's <YuDianecalin - Last Filed: 05/21/17 04:09> Results - Vital Signs Recent Vital Signs: Last Vital Signs Temp 98.5 F 05/21/17 00:12 Pulse 87 05/21/17 02:00 Resp 22 05/21/17 00:12 BP 135/75 05/21/17 00:12 Pulse Ox 99 05/20/17 20:58 - Labs Result Diagrams: 05/20/17 16:05 10/11/17 16:05 Labs: Laboratory Results - last 24 hr 05/20/17 05/20/17 20:15 23:07 pO2 80 H VBG pH 7.39 VBG pCO2 45.0 VBG HCO3 27.2 VBG Total CO2 28.6 H VBG O2 Sat (Calc) 97.6 H VBG Base Excess 1.7 VBG Potassium 3.6 Sodium 140.0 Chloride 106.0 Glucose 124 H Lactate 2.2 H FiO2 21.0 POC Glucose (mg/dL) 95 Venous Blood Potassium 3.6 Attending/Attestation - Attestation I have personally seen and examined this patient.: Yes I have fully participated in the care of the patient.: Yes I have reviewed all pertinent clinical information: Yes Notes (Text): 05/21/17 04:07 Patient was seen when she was in the ER . Agree with histor, physical examination, assessment and plan. Patient was seen when she was in bed # 6 in the ER. She speaks Yoruba. Knows little [place]. Medical record was reviewed. Agree with history, physical examination, assessment and plan. Following are my impressions. UTI,Hematuria, Sepsis, elevated lactic acid level, obesity, non-insulin dependent DM, mild intermittent asthma without complications,mild elevation of AST, Sinus tachycardia, generalized abdominal pain, nausea, vomiting, sob on exertion, anxiety , depression, history of dizziness, history of syncope, history of , history of lapartomy, family history of breast cancer(mother),family history of thyroid cancer(mother) .
[2017-05-20 20:29] LABS: VENOUS BLOOD GAS BASE EXCESS 1.7 mmol/L (0.0-2.0); VENOUS BLOOD PH 7.39 (7.32-7.43)
--- NOTE | 2017-05-20 20:29 | CT ---
EXAM: CT Angiography Chest With Intravenous Contrast CLINICAL HISTORY: 52 years old, female; Signs and symptoms; Shortness of breath; Additional info: R/O pe TECHNIQUE: Axial computed tomographic angiography images of the chest with intravenous contrast using pulmonary embolism protocol. All CT scans at this facility use one or more dose reduction techniques, viz.: automated exposure control; ma/kV adjustment per patient size (including targeted exams where dose is matched to indication; i.e. head); or iterative reconstruction technique. MIP reconstructed images were created and reviewed. Coronal and sagittal reformatted images were created and reviewed. CONTRAST: 51.2 mL of omnipaque 350 administered intravenously. COMPARISON: DX - CHEST PORTABLE 05/20/2017 4:39:51 PM FINDINGS: Limitations: Motion artifact - mild. Suboptimal timing of bolus. Pulmonary arteries: No definite pulmonary embolism. Aorta: Minimal atherosclerotic disease. No aneurysm. Lungs: No consolidation. Pleural space: No significant effusion. No pneumothorax. Heart: Borderline cardiomegaly. Small pericardial effusion. Bones/joints: No acute fracture. No dislocation. Soft tissues: Unremarkable. Lymph nodes: No pathologically enlarged lymph nodes. Upper abdomen: See abdomen CT report for additional details. IMPRESSION: 1. No definite CT evidence of pulmonary embolism. 2. Incidental/non-acute findings are described above.
--- NOTE | 2017-05-20 20:49 | CT ---
EXAM: CT Abdomen and Pelvis Without Intravenous Contrast CLINICAL HISTORY: 52 years old, female; Signs and symptoms; Vomiting; Prior surgery; Surgery date: 6+ months; Surgery type: Patient states she had 2 c-sections and 2 other surgeries, but unable to identify what they were; Additional info: Persistent vomiting, ? pyelo TECHNIQUE: Axial computed tomography images of the abdomen and pelvis without intravenous contrast. All CT scans at this facility use one or more dose reduction techniques, viz.: automated exposure control; ma/kV adjustment per patient size (including targeted exams where dose is matched to indication; i.e. head); or iterative reconstruction technique. Coronal and sagittal reformatted images were created and reviewed. COMPARISON: CT - ABD PELVIS W/O PO OR IV CONT 08/29/2015 2:36:53 PM FINDINGS: Limitations: Lack of intravenous contrast. Lower thorax: See chest CT report for additional details. ABDOMEN: Liver: Small calcification. Gallbladder and bile ducts: No calcified stones. No ductal dilation. Pancreas: Unremarkable. No ductal dilation. Spleen: No splenomegaly. Adrenals: No mass. Kidneys and ureters: No renal calculi. No hydronephrosis. Stomach and bowel: Scattered diverticula within colon. No associated inflammatory stranding. No definite mural thickening. No obstruction. Appendix: No findings to suggest acute appendicitis. PELVIS: Bladder: Unremarkable. No stones. Reproductive: Slightly lobulated uterus, possibly related to underlying fibroids. ABDOMEN and PELVIS: Intraperitoneal space: No significant fluid collection. No free air. Bones/joints: No acute fracture. Soft tissues: Unremarkable. Vasculature: Minimal atherosclerotic disease. No aneurysm. Lymph nodes: No pathologically enlarged lymph nodes. IMPRESSION: 1. Diverticulosis without definite CT evidence of diverticulitis. 2. Incidental/non-acute findings are described above.
[2017-05-20] MEDS ORDERED: Iohexol 350 MG/100 ML VIAL ONE (21:16)
[2017-05-20] MEDS ORDERED: Non Formulary Medication (Quetiapine [Seroquel] 50 MG) PO SCH (22:00)
--- NOTE | 2017-05-20 23:38 | CON ---
CARDIOLOGY CONSULTATION DATE: REASON FOR CONSULTATION: Cardiomegaly. HISTORY OF PRESENT ILLNESS: The patient is a 52-year-old female who presented to the emergency room because of intermittent nausea as well as abdominal discomfort. The patient did vomit in the Emergency Room and did experience shortness of breath and diaphoresis as she was walking to the bathroom. The patient is unaware of any prior cardiac history in the past. SOCIAL HISTORY: Nonsmoker. Nondrinker. MEDICATIONS: Claritin 10 mg once a day, albuterol inhaler q. 4 hours, Klonopin 1 mg at bedtime, Lipitor 10 mg once a day, Pepcid 40 mg p.o. once a day, Protonix 40 mg once a day, normal saline 125 mL an hour, and Zofran 4 mg p.o. once a day. PHYSICAL EXAMINATION GENERAL: The patient is moderately obese, female who does not appear to be in any respiratory distress. VITAL SIGNS: Blood pressure 136/68, heart rate 82, temperature 98.7, and respirations 18. HEENT: Normocephalic. CHEST: Clear. HEART: S1 and S2 regular. ABDOMEN: Mild epigastric tenderness. EXTREMITIES: No edema. LABORATORY DATA: Hemoglobin, hematocrit, white count, and platelet count are within normal limits. SMA-7 is within normal limits except for glucose of 111. One set of troponin is negative. INR is 1.61 and PTT is 30.3. EKG revealed sinus rhythm at a rate of 85. ASSESSMENT: 1. Cardiomegaly on chest x-ray. 2. Abdominal discomfort. 3. Hypertension and diabetes mellitus. RECOMMENDATIONS: Continue current albuterol inhaler, continue Lipitor, oral Pepcid, IV Protonix, and oral Zofran. I discussed the case with Emergency Room team. The patient will undergo CT angio of the chest, abdomen, and pelvis and will be admitted to telemetry. Obtain an echocardiogram in the a.m. to rule out pericardial effusion. Onel Alejandro MD
[2017-05-21 00:29] VITALS: BMI 40.5
--- NOTE | 2017-05-21 00:43 | PCM.SEPTIC ---
Sepsis Progress Note - Reassessment Type Date of Evaluation: 05/20/17 Time of Evaluation: 11:45 Reassessment Type: Non-invasive reassessment - Non Invasive Reassessment Were the most recent vital sign reviewed: Yes Vital Sign (Latest): Temp Pulse Resp BP Pulse Ox 98.5 F 74 22 135/75 99 05/21/17 00:12 05/21/17 00:12 05/21/17 00:12 05/21/17 00:12 05/20/17 20:58 Cardiovascular: Yes: Regular Rate, Rhythm. No: Gallop, JVD, Murmur, Irregularly Irregular Respiratory: Yes: Normal Breath Sounds. No: Accessory Muscle Use, Crackles, Rales, Rhonchi, Wheezing, Respiratory Distress Capillary Refill: Normal (Less than 2 sec) Pulses: Normal Radial, Normal Dorsalis Pedis, Normal Posterior Tibialis Skin: Normal Color, Warm
[2017-05-21] MEDS: Insulin Lispro (humaLOG) LOW Coverage SC SCH ×2 (00:54→21:28)
[2017-05-21] MEDS: Sodium Chloride 0.9% 1,000 ML IV SCH ×3 (02:27→21:46)
[2017-05-21 06:35] LABS: BASO # 0.01 K/mm3 (0.0-2.0); BASO % 0.2 % (0.0-3.0); EOS # 0.1 (0.0-0.7); EOS % 1.2 % (1.5-5.0); GRAN # 3.38 (1.4-6.5); GRAN % 52.6 % (50.0-68.0); HEMATOCRIT 38.9 % (36.0-48.0); LYMPH # 2.4 (1.2-3.4); LYMPH % 37.7 % (22.0-35.0); MEAN CELL VOLUME 81.9 fl (80.0-105.0); MEAN CORPUSCULAR HEMOGLOBIN 26.9 pg (25.0-35.0); MEAN CORPUSCULAR HGB CONC 32.9 g/dl (31.0-37.0); MEAN PLATELET VOLUME 9.4 fl (7.0-11.0); MONO # 0.5 (0.1-0.6); MONO % 8.3 % (1.0-6.0); RED CELL DISTRIBUTION WIDTH 15.1 % (11.5-14.5); WHITE BLOOD COUNT 6.4 10^3/ul (4.5-11.0)
[2017-05-21 07:00] LABS: ALB/GLOB RATIO 1.4 (1.1-1.8); ALKALINE PHOSPHATASE 61 U/L (38-126); ALT/SGPT 26 U/L (7-56); AST/SGOT 22 U/L (14-36); BILIRUBIN,TOTAL 0.6 mg/dL (0.2-1.3); BLOOD UREA NITROGEN 14 mg/dL (7-21); CALCIUM 8.2 mg/dL (8.4-10.5); CARBON DIOXIDE 24 mmol/L (21-33); CHLORIDE 109 mmol/L (98-107); GFR AFRICAN-AMERICAN > 60; GLUCOSE,RANDOM 100 mg/dL (70-110); SODIUM 141 mmol/L (132-148); TOTAL PROTEIN 5.5 g/dL (5.8-8.3)
[2017-05-21] MEDS ORDERED: Non Formulary Medication (Ranitidine Hcl [Zantac] 300 MG) PO SCH (10:00)
[2017-05-21] MEDS ORDERED: Non Formulary Medication (Empagliflozin [Jardiance] 10 MG) PO SCH (10:00)
[2017-05-21] MEDS ORDERED: Non Formulary Medication (Fluticasone Propionate [Flovent Diskus] 50 MCG) IH SCH (10:00)
[2017-05-21] MEDS ORDERED: LOVASTATIN 40 MG PO SCH (10:00)
[2017-05-21] MEDS ORDERED: BENZONATATE 200 MG PO SCH (10:00)
--- NOTE | 2017-05-21 11:16 | CARD ---
APPROVED REPORT EKG Measurement Heart [id number] <Conclusion> Normal sinus rhythm Normal ECG
--- NOTE | 2017-05-21 14:08 | CP.PCM.PN ---
<Michele Akins - Last Filed: 05/21/17 14:04> Subjective - Date & Time of Evaluation Date of Evaluation: 05/21/17 Time of Evaluation: 09:00 - Subjective Subjective: Dr. Medrano Service Pt was seen and examined at bedside. No acute complaints at this time. Pt had a code sepsis called yesterday on account of elevated lactate. Pt vitals have been stable. Pt denied fever, chills, any further sob, chest pains, abdominal pains, n/v/d/c or urinary symptoms. Objective - Vital Signs/Intake and Output Vital Signs (last 24 hours): Temp Pulse Resp BP Pulse Ox 97.8 F 65 20 91/52 L 97 05/21/17 06:00 05/21/17 10:00 05/21/17 06:00 05/21/17 06:00 05/21/17 06:00 Intake and Output: 05/21/17 05/21/17 06:59 18:59 Intake Total 1245 375 Balance 1245 375 - Medications Medications: Current Medications Albuterol/Ipratropium (Duoneb 3 Mg/0.5 Mg (3 Ml) Ud) 3 ml IH Q4 PRN PRN Reason: Shortness of Breath Atorvastatin Calcium (Lipitor) 10 mg PO DIN MAJO Benzonatate (Tessalon Perles) 200 mg PO DAILY [facility] Last Admin: 05/21/17 12:09 Dose: 200 mg Citalopram Hydrobromide (Celexa) 20 mg PO BID [facility] Last Admin: 05/21/17 12:08 Dose: 20 mg Clonazepam (Klonopin) 1 mg PO HS [facility] PRN Reason: Protocol Last Admin: 05/20/17 23:37 Dose: 1 mg Famotidine (Pepcid) 40 mg PO DAILY [facility] Last Admin: 05/21/17 12:05 Dose: 40 mg Sodium Chloride (Sodium Chloride 0.9%) 1,000 mls @ 125 mls/hr IV .Q8H [facility] Last Admin: 05/21/17 04:44 Dose: Not Given Insulin Human Lispro (Humalog Low) 0 units SC ACHS [facility] PRN Reason: Protocol Last Admin: 05/21/17 00:54 Dose: Not Given Loratadine (Claritin) 10 mg PO DAILY [facility] Last Admin: 05/21/17 12:07 Dose: 10 mg Montelukast Sodium (Singulair) 10 mg PO DAILY [facility] Last Admin: 05/21/17 12:07 Dose: 10 mg Non-Formulary Medication (Fluticasone Propionate [Flovent Hfa]) 0.22 mg IH BID [facility] Ondansetron HCl (Zofran Tab) 4 mg PO DAILY [facility] Pantoprazole Sodium (Protonix Inj) 40 mg IVP DAILY [facility] Quetiapine Fumarate (Seroquel) 200 mg PO HS [facility] Last Admin: 05/20/17 23:36 Dose: 200 mg - Labs Labs: 05/21/17 06:15 05/21/17 06:15 PT 17.4 Seconds (9.9-11.8) H 05/20/17 16:05 INR 1.61 (0.93-1.08) H 05/20/17 16:05 APTT 30.3 Seconds (23.7-30.8) 05/20/17 16:05 - Constitutional Appears: No Acute Distress - Head Exam Head Exam: ATRAUMATIC, NORMAL INSPECTION, NORMOCEPHALIC - Eye Exam Eye Exam: EOMI, Normal appearance, PERRL Pupil Exam: NORMAL ACCOMODATION, PERRL - ENT Exam ENT Exam: Mucous Membranes Moist, Normal Exam - Respiratory Exam Respiratory Exam: Decreased Breath Sounds, NORMAL BREATHING PATTERN - Cardiovascular Exam Cardiovascular Exam: REGULAR RHYTHM, +S1, +S2. absent: Murmur - GI/Abdominal Exam GI & Abdominal Exam: Soft, Normal Bowel Sounds. absent: Tenderness - Extremities Exam Extremities Exam: Full ROM, Normal Capillary Refill, Normal Inspection. absent : Joint Swelling, Pedal Edema - Neurological Exam Neurological Exam: Alert, Awake, CN II-XII Intact, Normal Gait, Oriented x3 - Psychiatric Exam Psychiatric exam: Normal Affect, Normal Mood - Skin Skin Exam: Dry, Intact, Normal Color, Warm Assessment and Plan - Assessment and Plan (Free Text) Assessment: This is a 52 year old female with past medical history of hyperlipidemia, copd, type 2 diabetes and unspecified psych condition who is being admitted for dyspnea on exertion and sepsis. 1. UTI -Urine Culture at last visit grew Klebsiella. Patient started on IV Cefepime. -Blood cultures and urine cultures ordered. F/U with results tomorrow. -Lactic acid downtrending, only suspected source at this time. 2.SOB with exertion vs. anxiety -Patient has new onset SOB on exertion. -CXR in the E.D. was negative for any active disease. -CT angiography negative for PE -Cardio consulted. FU ECHO, completed, pending read 3.Abdominal pain 2/2 to vomiting -Zofran started. -Physical Exam diffused abdominal tenderness noted. Negative Naylor's sign. -Abdomen and pelvis Ct Ordered. Diverticulosis without any signs of diverticulitis 4. Episodic Tachycardia -Per E.D. patient has episodes of Tachycardia. Patient presently not tachycardic. -Ekg shows NSR with no acute ST-T changes. -Cardio consulted. F/U with rec's tomorrow. 5. Hyperlipidemia -Continue home meds. 6.Diabetes -ISS -Accucheck ACHS GI ppx -Protonix DVT ppx -SCD's Seen reviewed and discussed with attending <Jesica Medrano - Last Filed: 05/23/17 12:13> Objective - Vital Signs/Intake and Output Vital Signs (last 24 hours): Temp Pulse Resp BP Pulse Ox 98.1 F 79 16 109/73 98 05/22/17 11:21 05/22/17 18:00 05/22/17 11:21 05/22/17 11:21 05/22/17 06:00 - Labs Labs: 05/22/17 06:53 05/22/17 07:45 PT 17.4 Seconds (9.9-11.8) H 05/20/17 16:05 INR 1.61 (0.93-1.08) H 05/20/17 16:05 APTT 30.3 Seconds (23.7-30.8) 05/20/17 16:05 Attending/Attestation - Attestation I have personally seen and examined this patient.: Yes I have fully participated in the care of the patient.: Yes I have reviewed all pertinent clinical information, including history, physical exam and plan: Yes Notes (Text): I have seen and examined the patient at bedside. Agree with the above note with the following additions/ exceptions: Briefly this is 52 year old with history of dyslipidemia, COPD, DM-2, suspected anxiety who came for evaluation of MCNULTY, nausea and vomiting and found to have partially treated UTI. Patient was started on IV antibiotics. CT angio was negative fo PE. Echo was ordered. Cardiology connsult pending. Upon discharge patient will follow up with Dr Young. Dr Jesica Medrano
--- NOTE | 2017-05-21 15:29 | CT ---
PROCEDURE: CT HEAD WITHOUT CONTRAST. HISTORY: Dizzyness COMPARISON: 11/21/2015 TECHNIQUE: Axial computed tomography images were obtained through the head/brain without intravenous contrast. Radiation dose: Total exam DLP = 781 mGy-cm. This CT exam was performed using one or more of the following dose reduction techniques: Automated exposure control, adjustment of the mA and/or kV according to patient size, and/or use of iterative reconstruction technique. FINDINGS: HEMORRHAGE: No intracranial hemorrhage. BRAIN: No mass effect or edema. No atrophy or chronic microvascular ischemic changes. VENTRICLES: Unremarkable. No hydrocephalus. CALVARIUM: Unremarkable. PARANASAL SINUSES: Unremarkable as visualized. No significant inflammatory changes. MASTOID AIR CELLS: Unremarkable as visualized. No inflammatory changes. OTHER FINDINGS: None. IMPRESSION: No acute findings
[2017-05-21] MEDS: FLUTICASONE PROPIONATE 0.22 MG IH SCH (17:35)
--- NOTE | 2017-05-21 18:58 | PN ---
DATE: SUBJECTIVE: The patient denies any chest pain or dizziness. PHYSICAL EXAMINATION: VITAL SIGNS: Blood pressure 91/52, heart rate 60 to 65, temperature 97.8, respirations 20. HEENT: Normocephalic. CHEST: Clear. HEART: S1 and S2 regular. EXTREMITIES: Trace edema. LABORATORY DATA: Hemoglobin, hematocrit, white count and platelet count today are within normal limit. SMA-7 is within normal limits except for carbon dioxide of 109 and total two sets of troponins are negative. Urine culture final report no growth. Chest CT angio no evidence of pulmonary embolus. Repeat abdomen and pelvis CT scan, diverticulosis without definite CT evidence of diverticulitis. ASSESSMENT: 1. Dizziness and near syncope. 2. Hyperlipidemia. 3. Diabetes mellitus. 4. Diverticulosis. RECOMMENDATIONS: Continue current medication. Continue albuterol, Lipitor, oral Pepcid, IV Protonix, and oral Zofran. I would review the echocardiograph study and obtained head CT scan without contrast. As the patient did experience dizziness and weakness while in the emergency room last night. Onel Alejandro MD
--- NOTE | 2017-05-21 22:10 | CARD ---
APPROVED REPORT EXAM: Two-dimensional and M-mode echocardiogram with Doppler and color Doppler. INDICATION CARDIOMEGALY 2D DIMENSIONS Left Atrium (2D)3.6 (1.6-4.0cm)IVSd0.9 (0.7-1.1cm) LVDd4.5 (3.9-5.9cm)PWd1.1 (0.7-1.1cm) LVDs3.2 (2.5-4.0cm)FS (%) 29.0 % LVEF (%)55.9 (>50%) M-Mode DIMENSIONS Aortic Root2.90 (2.2-3.7cm)Aortic Cusp Exc.1.80 (1.5-2.0cm) Aortic Valve AoV Peak Shfwocmi004.0cm/Bhavani Peak GR.8mmHg Mitral Valve MV E Ondsckaq88.9cm/sMV A Gdebokyd760.0cm/sE/A ratio0.8 TDI Lateral E' Peak V7.70cm/sMedial E' Peak V7.12cm/sE/Lateral E'10.9 E/Medial E'11.8 Pulmonary Valve PV Peak Jrhgorzd83.2cm/sPV Peak Grad.2mmHg Tricuspid Valve TR Peak Neltqynb280tv/sRAP [id number] Peak Gr.22mmHg [id number] LEFT VENTRICLE The left ventricle is normal size. There is normal left ventricular wall thickness. The left ventricular function is normal. The left ventricular ejection fraction is within the normal range. There is normal LV segmental wall motion. Transmitral Doppler flow pattern is Grade I-abnormal relaxation pattern. RIGHT VENTRICLE The right ventricle is normal size. There is normal right ventricular wall thickness. The right ventricular systolic function is normal. ATRIA The left atrium size is normal. The right atrium size is normal. AORTIC VALVE The aortic valve is not well visualized and may it be bicusped No aortic regurgitation is present. There is no aortic valvular stenosis. MITRAL VALVE The mitral valve is normal in structure. Mitral regurgitation is trace. TRICUSPID VALVE There is trace tricuspid regurgitation. GREAT VESSELS The aortic root is normal in size. The IVC is normal in size and collapses >50% with inspiration. PERICARDIAL EFFUSION There is no pericardial effusion. <Conclusion> The left ventricle is normal size. There is normal left ventricular wall thickness. The left ventricular function is normal. The left ventricular ejection fraction is within the normal range. There is normal LV segmental wall motion. Transmitral Doppler flow pattern is Grade I-abnormal relaxation pattern.
[2017-05-21] MEDS: Cefepime 1gm in NS 100ml 1 GM/100 ML BAG IVPB SCH (23:31)
[2017-05-22 06:07] VITALS: O2SAT 98
[2017-05-22 06:59] LABS: BASO # 0.01 K/mm3 (0.0-2.0); BASO % 0.2 % (0.0-3.0); EOS # 0.1 (0.0-0.7); EOS % 1.9 % (1.5-5.0); GRAN # 3.45 (1.4-6.5); GRAN % 54.8 % (50.0-68.0); HEMATOCRIT 39.4 % (36.0-48.0); LYMPH # 2.1 (1.2-3.4); LYMPH % 33.9 % (22.0-35.0); MEAN CELL VOLUME 83.1 fl (80.0-105.0); MEAN CORPUSCULAR HGB CONC 32.5 g/dl (31.0-37.0); MEAN PLATELET VOLUME 9.3 fl (7.0-11.0); MONO # 0.6 (0.1-0.6); MONO % 9.2 % (1.0-6.0); RED CELL DISTRIBUTION WIDTH 15.3 % (11.5-14.5); WHITE BLOOD COUNT 6.3 10^3/ul (4.5-11.0)
[2017-05-22] MEDS: Sodium Chloride 0.9% 1,000 ML IV SCH (07:15)
[2017-05-22 08:08] LABS: ALB/GLOB RATIO 1.5 (1.1-1.8); ALKALINE PHOSPHATASE 62 U/L (38-126); ALT/SGPT 36 U/L (7-56); AST/SGOT 27 U/L (14-36); BILIRUBIN,TOTAL 0.7 mg/dL (0.2-1.3); BLOOD UREA NITROGEN 12 mg/dL (7-21); CALCIUM 8.2 mg/dL (8.4-10.5); CARBON DIOXIDE 25 mmol/L (21-33); CHLORIDE 107 mmol/L (95-110); GFR AFRICAN-AMERICAN > 60; GLUCOSE,RANDOM 115 mg/dL (70-110); SODIUM 140 mmol/L (132-148); TOTAL PROTEIN 5.5 g/dL (5.8-8.3)
[2017-05-22] MEDS: Insulin Lispro (humaLOG) LOW Coverage SC SCH ×3 (08:21→17:00)
[2017-05-22] MEDS: FLUTICASONE PROPIONATE 0.22 MG IH SCH ×2 (09:40→19:06)
[2017-05-22] MEDS: Cefepime 1gm in NS 100ml 1 GM/100 ML BAG IVPB SCH (10:44)
[2017-05-22 11:22] VITALS: BP 109/73; RESP 16; TEMP 98.1
--- NOTE | 2017-05-22 12:29 | CP.PCM.DIS ---
<Anitra Vásquez - Last Filed: 05/22/17 18:27> Provider - Provider Date of Admission: 05/20/17 17:57 Attending physician: Jesica Medrano MD Primary care physician: Danielle Young DO Consults: Cardiology: Flavia Time Spent in preparation of Discharge (in minutes): 30 Hospital Course - Lab Results Lab Results: Most Recent Lab Values WBC 6.3 10^3/ul (4.5-11.0) 05/22/17 06:53 RBC 4.74 10^6/uL (3.5-6.1) 05/22/17 06:53 Hgb 12.8 g/dL (12.0-16.0) 05/22/17 06:53 Hct 39.4 % (36.0-48.0) 05/22/17 06:53 MCV 83.1 fl (80.0-105.0) 05/22/17 06:53 MCH 27.0 pg (25.0-35.0) 05/22/17 06:53 MCHC 32.5 g/dl (31.0-37.0) 05/22/17 06:53 RDW 15.3 % (11.5-14.5) H 05/22/17 06:53 Plt Count 237 10^3/uL (120.0-450.0) 05/22/17 06:53 MPV 9.3 fl (7.0-11.0) 05/22/17 06:53 Gran % 54.8 % (50.0-68.0) 05/22/17 06:53 Lymph % (Auto) 33.9 % (22.0-35.0) 05/22/17 06:53 [place] % (Auto) 9.2 % (1.0-6.0) H 05/22/17 06:53 Eos % (Auto) 1.9 % (1.5-5.0) 05/22/17 06:53 Baso % (Auto) 0.2 % (0.0-3.0) 05/22/17 06:53 Gran # 3.45 (1.4-6.5) 05/22/17 06:53 Lymph # 2.1 (1.2-3.4) 05/22/17 06:53 [place] # 0.6 (0.1-0.6) 05/22/17 06:53 Eos # 0.1 (0.0-0.7) 05/22/17 06:53 Baso # 0.01 K/mm3 (0.0-2.0) 05/22/17 06:53 PT 17.4 Seconds (9.9-11.8) H 05/20/17 16:05 INR 1.61 (0.93-1.08) H 05/20/17 16:05 APTT 30.3 Seconds (23.7-30.8) 05/20/17 16:05 pCO2 40 mm/Hg (35-45) 05/20/17 16:42 pO2 80 mm/Hg (30-55) H 05/20/17 20:15 HCO3 25.9 mmol/L (21-28) 05/20/17 16:42 ABG pH 7.42 (7.35-7.45) 05/20/17 16:42 ABG Total CO2 27.1 mmol.L (22-28) 05/20/17 16:42 ABG O2 Saturation 95.8 % (95-98) 05/20/17 16:42 ABG Base Excess 1.3 mmol/L (-2.0-3.0) 05/20/17 16:42 ABG Potassium 3.3 mmol/L (3.6-5.2) L 05/20/17 16:42 VBG pH 7.39 (7.32-7.43) 05/20/17 20:15 VBG pCO2 45.0 (40-60) 05/20/17 20:15 VBG HCO3 27.2 mmol/l (21-28) 05/20/17 20:15 VBG Total CO2 28.6 mmol.L (22-28) H 05/20/17 20:15 VBG O2 Sat (Calc) 97.6 % (40-65) H 05/20/17 20:15 VBG Base Excess 1.7 mmol/L (0.0-2.0) 05/20/17 20:15 VBG Potassium 3.6 mmol/L (3.6-5.2) 05/20/17 20:15 Sodium 140.0 mmol/L (132-148) 05/20/17 20:15 Chloride 106.0 mmol/L (98-107) 05/20/17 20:15 Glucose 124 mg/dl (65-105) H 05/20/17 20:15 Lactate 2.2 mmol/L (0.7-2.1) H 05/20/17 20:15 FiO2 21.0 % 05/20/17 20:15 Sodium 140 mmol/L (132-148) 05/22/17 07:45 Potassium 4.0 mmol/L (3.6-5.0) 05/22/17 07:45 Chloride 107 mmol/L (95-110) 05/22/17 07:45 Carbon Dioxide 25 mmol/L (21-33) 05/22/17 07:45 Anion Gap 12 (10-20) 05/22/17 07:45 BUN 12 mg/dL (7-21) 05/22/17 07:45 Creatinine 0.7 mg/dL (0.7-1.2) 05/22/17 07:45 Est GFR ( Amer) > 60 05/22/17 07:45 Est GFR (Non-Af Amer) > 60 05/22/17 07:45 POC Glucose (mg/dL) 120 mg/dL (65-110) H 05/22/17 07:34 Random Glucose 115 mg/dL (70-110) H 05/22/17 07:45 Calcium 8.2 mg/dL (8.4-10.5) L 05/22/17 07:45 Phosphorus 4.2 mg/dL (2.5-4.5) 05/20/17 16:05 Magnesium 1.8 mg/dL (1.7-2.2) 05/20/17 16:05 Total Bilirubin 0.7 mg/dL (0.2-1.3) 05/22/17 07:45 AST 27 U/L (14-36) 05/22/17 07:45 ALT 36 U/L (7-56) 05/22/17 07:45 Alkaline Phosphatase 62 U/L (38-126) 05/22/17 07:45 Lactate Dehydrogenase 535 U/L (333-699) 05/20/17 16:05 Total Creatine Kinase 44 U/L (35-230) 05/20/17 16:05 Troponin I < 0.01 ng/mL 05/21/17 17:00 NT-Pro-B Natriuret Pep 27.7 pg/mL (0-450) 05/20/17 16:05 Total Protein 5.5 g/dL (5.8-8.3) L 05/22/17 07:45 Albumin 3.3 g/dL (3.0-4.8) 05/22/17 07:45 Globulin 2.2 gm/dL 05/22/17 07:45 Albumin/Globulin Ratio 1.5 (1.1-1.8) 05/22/17 07:45 Arterial Blood Potassium 3.3 mmol/L (3.6-5.2) L 05/20/17 16:42 Venous Blood Potassium 3.6 mmol/L (3.6-5.2) 05/20/17 20:15 Urine Color Yellow (YELLOW) 05/20/17 17:45 Urine Appearance Sl cloudy (CLEAR) 05/20/17 17:45 Urine pH 6.5 (4.7-8.0) 05/20/17 17:45 Ur Specific [place] 1.020 (1.005-1.035) 05/20/17 17:45 Urine Protein Trace mg/dL (<30 mg/dL) H 05/20/17 17:45 Urine Glucose (UA) >=1000 mg/dL (NEGATIVE) 05/20/17 17:45 Urine Ketones Negative mg/dL (NEGATIVE) 05/20/17 17:45 Urine Blood Small (NEGATIVE) H 05/20/17 17:45 Urine Nitrate Negative (NEGATIVE) 05/20/17 17:45 Urine Bilirubin Negative (NEGATIVE) 05/20/17 17:45 Urine Urobilinogen 0.2 E.U./dL (<1 E.U./dL) 05/20/17 17:45 Ur Leukocyte Esterase Small Kevin/uL (NEGATIVE) H 05/20/17 17:45 Urine RBC 1 - 3 /hpf (0-2) 05/20/17 17:45 Urine WBC 10 - 15 /hpf (0-6) 05/20/17 17:45 Ur Epithelial Cells 6 - 8 /hpf (0-5) 05/20/17 17:45 Urine Bacteria Many (NEG) 05/20/17 17:45 - Hospital Course Hospital Course: Patient is a 52 year old with a past medical history of hyperlipidemia, copd, type 2 diabetes mellitus and unspecified psych history who presents to the emergency department complaining of two weeks of nausea and multiple non-bloody , non-bilious vomiting episodes. The patient in conjunction with the the initial complaints reports acid reflux that's not associated with food intake. The patient reports taking Ranitidine with some relief. The patient also reports diffuse abdominal pain that she rates a 5/10 in severity. The patient denies any alleviating or modifying factors. The patient also reports dyspnea on exertion that's been occurring since the past two weeks. The patient reports she usually can walk twenty or thirty minutes without stopping. The patient now reports having to pause after a couple of blocks. Patient was admitted to the hospital for intermittent nausea and abdominal discomfort. Patient was given zofran. CT abd pelvis showed diverticulosis. Patient also complaining with dyspnea on exertion with diaphoresis and dizziness. CXR showed no active disease. Cardiology was consulted and on the case. CT chest was negative. Echo showed normal LVEF, with grade I abnormal relaxation pattern. CT head showed no active pathology. She has a history of Klebsiella UTI. UA showing small leuk esterase, +WBCs. Was started on Cefepime. Patient had elevated lactate, code sepsis was called. Blood cultures were negative, Urine cultures were negative. Lactate trended down. On day of discharge patient was doing well. Patient was ambulating and tolerating diet. Offered no complaints. Denied headache, dizziness, cp, palpitations, sob, abdominal pain, urinary symptoms. All medications reconciled. Prescription for Ciprofloxacin 500mg x 7 days. Patient to follow up with PMD within 1 week. All questions and concerns were addressed. Discharge Exam - Head Exam Head Exam: ATRAUMATIC, NORMAL INSPECTION, NORMOCEPHALIC - Eye Exam Eye Exam: EOMI, Normal appearance, PERRL Pupil Exam: NORMAL ACCOMODATION - ENT Exam ENT Exam: Mucous Membranes Moist - Neck Exam Neck exam: Full Rom - Respiratory Exam Respiratory Exam: Clear to PA & Lateral, UNREMARKABLE. absent: Rales, Rhonchi, Wheezes - Cardiovascular Exam Cardiovascular Exam: REGULAR RHYTHM, +S1, +S2 - GI/Abdominal Exam GI & Abdominal Exam: Normal Bowel Sounds, Soft. absent: Guarding, Rebound, Rigid, Tenderness - Extremities Exam Extremities exam: normal inspection, pedal pulses present - Back Exam Back exam: NORMAL INSPECTION - Neurological Exam Neurological exam: Alert, Normal Gait, Oriented x3 - Psychiatric Exam Psychiatric exam: Normal Affect, Normal Mood - Skin Skin Exam: Dry, Normal Color, Warm Discharge Plan - Discharge Medications Prescriptions: RX: Ciprofloxacin [Cipro] 500 mg PO DAILY #7 tab - Follow Up Plan Condition: FAIR Disposition: HOME/ ROUTINE Instructions: Urinary Tract Infection in Women (DC), Sepsis (GEN), Dyspnea (GEN ) Additional Instructions: 1. Patient to follow up with PMD within 1 week 2. Continue Ciprofloxacin 500mg X 7 days Referrals: Danielle Young DO [Primary Care Provider] - <Jesica Medrano - Last Filed: 05/23/17 12:21> Provider - Provider Date of Admission: 05/20/17 17:57 Attending physician: Jesica Medrano MD Primary care physician: Danielle Young DO Time Spent in preparation of Discharge (in minutes): 35 Hospital Course - Lab Results Lab Results: Most Recent Lab Values WBC 6.3 10^3/ul (4.5-11.0) 05/22/17 06:53 RBC 4.74 10^6/uL (3.5-6.1) 05/22/17 06:53 Hgb 12.8 g/dL (12.0-16.0) 05/22/17 06:53 Hct 39.4 % (36.0-48.0) 05/22/17 06:53 MCV 83.1 fl (80.0-105.0) 05/22/17 06:53 MCH 27.0 pg (25.0-35.0) 05/22/17 06:53 MCHC 32.5 g/dl (31.0-37.0) 05/22/17 06:53 RDW 15.3 % (11.5-14.5) H 05/22/17 06:53 Plt Count 237 10^3/uL (120.0-450.0) 05/22/17 06:53 MPV 9.3 fl (7.0-11.0) 05/22/17 06:53 Gran % 54.8 % (50.0-68.0) 05/22/17 06:53 Lymph % (Auto) 33.9 % (22.0-35.0) 05/22/17 06:53 [place] % (Auto) 9.2 % (1.0-6.0) H 05/22/17 06:53 Eos % (Auto) 1.9 % (1.5-5.0) 05/22/17 06:53 Baso % (Auto) 0.2 % (0.0-3.0) 05/22/17 06:53 Gran # 3.45 (1.4-6.5) 05/22/17 06:53 Lymph # 2.1 (1.2-3.4) 05/22/17 06:53 [place] # 0.6 (0.1-0.6) 05/22/17 06:53 Eos # 0.1 (0.0-0.7) 05/22/17 06:53 Baso # 0.01 K/mm3 (0.0-2.0) 05/22/17 06:53 PT 17.4 Seconds (9.9-11.8) H 05/20/17 16:05 INR 1.61 (0.93-1.08) H 05/20/17 16:05 APTT 30.3 Seconds (23.7-30.8) 05/20/17 16:05 pCO2 40 mm/Hg (35-45) 05/20/17 16:42 pO2 80 mm/Hg (30-55) H 05/20/17 20:15 HCO3 25.9 mmol/L (21-28) 05/20/17 16:42 ABG pH 7.42 (7.35-7.45) 05/20/17 16:42 ABG Total CO2 27.1 mmol.L (22-28) 05/20/17 16:42 ABG O2 Saturation 95.8 % (95-98) 05/20/17 16:42 ABG Base Excess 1.3 mmol/L (-2.0-3.0) 05/20/17 16:42 ABG Potassium 3.3 mmol/L (3.6-5.2) L 05/20/17 16:42 VBG pH 7.39 (7.32-7.43) 05/20/17 20:15 VBG pCO2 45.0 (40-60) 05/20/17 20:15 VBG HCO3 27.2 mmol/l (21-28) 05/20/17 20:15 VBG Total CO2 28.6 mmol.L (22-28) H 05/20/17 20:15 VBG O2 Sat (Calc) 97.6 % (40-65) H 05/20/17 20:15 VBG Base Excess 1.7 mmol/L (0.0-2.0) 05/20/17 20:15 VBG Potassium 3.6 mmol/L (3.6-5.2) 05/20/17 20:15 Sodium 140.0 mmol/L (132-148) 05/20/17 20:15 Chloride 106.0 mmol/L (98-107) 05/20/17 20:15 Glucose 124 mg/dl (65-105) H 05/20/17 20:15 Lactate 2.2 mmol/L (0.7-2.1) H 05/20/17 20:15 FiO2 21.0 % 05/20/17 20:15 Sodium 140 mmol/L (132-148) 05/22/17 07:45 Potassium 4.0 mmol/L (3.6-5.0) 05/22/17 07:45 Chloride 107 mmol/L (95-110) 05/22/17 07:45 Carbon Dioxide 25 mmol/L (21-33) 05/22/17 07:45 Anion Gap 12 (10-20) 05/22/17 07:45 BUN 12 mg/dL (7-21) 05/22/17 07:45 Creatinine 0.7 mg/dL (0.7-1.2) 05/22/17 07:45 Est GFR ( Amer) > 60 05/22/17 07:45 Est GFR (Non-Af Amer) > 60 05/22/17 07:45 POC Glucose (mg/dL) 91 mg/dL (65-110) 05/22/17 16:03 Random Glucose 115 mg/dL (70-110) H 05/22/17 07:45 Calcium 8.2 mg/dL (8.4-10.5) L 05/22/17 07:45 Phosphorus 4.2 mg/dL (2.5-4.5) 05/20/17 16:05 Magnesium 1.8 mg/dL (1.7-2.2) 05/20/17 16:05 Total Bilirubin 0.7 mg/dL (0.2-1.3) 05/22/17 07:45 AST 27 U/L (14-36) 05/22/17 07:45 ALT 36 U/L (7-56) 05/22/17 07:45 Alkaline Phosphatase 62 U/L (38-126) 05/22/17 07:45 Lactate Dehydrogenase 535 U/L (333-699) 05/20/17 16:05 Total Creatine Kinase 44 U/L (35-230) 05/20/17 16:05 Troponin I < 0.01 ng/mL 05/21/17 17:00 NT-Pro-B Natriuret Pep 27.7 pg/mL (0-450) 05/20/17 16:05 Total Protein 5.5 g/dL (5.8-8.3) L 05/22/17 07:45 Albumin 3.3 g/dL (3.0-4.8) 05/22/17 07:45 Globulin 2.2 gm/dL 05/22/17 07:45 Albumin/Globulin Ratio 1.5 (1.1-1.8) 05/22/17 07:45 Arterial Blood Potassium 3.3 mmol/L (3.6-5.2) L 05/20/17 16:42 Venous Blood Potassium 3.6 mmol/L (3.6-5.2) 05/20/17 20:15 Urine Color Yellow (YELLOW) 05/20/17 17:45 Urine Appearance Sl cloudy (CLEAR) 05/20/17 17:45 Urine pH 6.5 (4.7-8.0) 05/20/17 17:45 Ur Specific [place] 1.020 (1.005-1.035) 05/20/17 17:45 Urine Protein Trace mg/dL (<30 mg/dL) H 05/20/17 17:45 Urine Glucose (UA) >=1000 mg/dL (NEGATIVE) 05/20/17 17:45 Urine Ketones Negative mg/dL (NEGATIVE) 05/20/17 17:45 Urine Blood Small (NEGATIVE) H 05/20/17 17:45 Urine Nitrate Negative (NEGATIVE) 05/20/17 17:45 Urine Bilirubin Negative (NEGATIVE) 05/20/17 17:45 Urine Urobilinogen 0.2 E.U./dL (<1 E.U./dL) 05/20/17 17:45 Ur Leukocyte Esterase Small Kevin/uL (NEGATIVE) H 05/20/17 17:45 Urine RBC 1 - 3 /hpf (0-2) 05/20/17 17:45 Urine WBC 10 - 15 /hpf (0-6) 05/20/17 17:45 Ur Epithelial Cells 6 - 8 /hpf (0-5) 05/20/17 17:45 Urine Bacteria Many (NEG) 05/20/17 17:45 Attending/Attestation - Attestation I have personally seen and examined this patient.: Yes I have fully participated in the care of the patient.: Yes I have reviewed all pertinent clinical information, including history, physical exam and plan: Yes Notes (Text): I have seen and examined the patient at bedside. Agree with the above note with the following additions/ exceptions: Briefly this is 52 year old with history of dyslipidemia, COPD, DM-2, suspected anxiety who came for evaluation of MCNULTY, nausea and vomiting and found to have partially treated UTI. Patient was started on IV antibiotics. CT angio was negative fo PE. Echo result is pending. Cardiology consult appreciated. CT abdomen/ pelvis reveals diverticulosis. Patient denies any other complaints. Discussed with the patient who feels better. Urine culture result pending. Upon discharge patient will follow up with Dr Young. Dr Jesica Medrano
--- NOTE | 2017-05-22 14:54 | PN ---
DATE: SUBJECTIVE: The patient denies any dizziness or chest pain. PHYSICAL EXAMINATION: VITAL SIGNS: Blood pressure of 120/62, heart rate of 74, temperature of 99.4, and respirations of 17. HEENT: Normocephalic. CHEST: Clear. HEART: S1 and S2 regular. ABDOMEN: Soft. EXTREMITIES: No edema. DIAGNOSTIC DATA: Head CT scan without contrast, no acute findings. Echocardiography study revealed normal ventricular size, wall thickness and systolic function with normal segmental wall motion. Reduced compliance. LABORATORY DATA: Blood cultures negative after 24 hours. ASSESSMENT: 1. Cardiomegaly on chest x-ray. The patient has normal ejection fraction and echocardiography study does not confirm these findings. The finding could be related to poor inspiratory effort during her chest x-ray. 2. Hypertension. 3. Diabetes mellitus. RECOMMENDATIONS: Continue current Lipitor, IV cefepime, and IV Protonix. Discontinue telemetry. Onel Alejandro MD
[2017-05-22 18:57] VITALS: PULSE 79
== END 2017-05-22 22:07 | disposition home or self-care (01) | DRG 320 ==
LOC: ED 15:27 → ERH 17:57 → 2RSO 22:00
PROVIDERS: ADMIT Hospitalist; ATTEND Hospitalist
DX: N39.0 Urinary tract infection, site not specified (principal); B96.1 Klebsiella pneumoniae [K. pneumoniae] as the cause of diseases classified elsewhere; K21.9 Gastro-esophageal reflux disease without esophagitis; J44.9 Chronic obstructive pulmonary disease, unspecified; I11.9 Hypertensive heart disease without heart failure; E11.9 Type 2 diabetes mellitus without complications; E78.5 Hyperlipidemia, unspecified; R00.0 Tachycardia, unspecified; K57.90 Diverticulosis of intestine, part unspecified, without perforation or abscess without bleeding; R42 Dizziness and giddiness

== ENCOUNTER 2017-11-20 15:25 | Emergency (ER) | payer MEDICAID ==
[2017-11-20 15:35] VITALS: BMI 39.0
[2017-11-20] MEDS ORDERED: Albuterol-Ipratrop 3 mg / 0.5 (3 ml) UD IH STA (15:48)
[2017-11-20 15:53] VITALS: TEMP 97.5
[2017-11-20 16:21] LABS: BASO # 0.01 K/mm3 (0.0-2.0); BASO % 0.1 % (0.0-3.0); EOS # 0.1 (0.0-0.7); EOS % 0.8 % (1.5-5.0); GRAN # 4.88 (1.4-6.5); GRAN % 57.9 % (50.0-68.0); LYMPH % 35.5 % (22.0-35.0); MEAN CELL VOLUME 81.4 fl (80.0-105.0); MEAN CORPUSCULAR HEMOGLOBIN 28.4 pg (25.0-35.0); MEAN CORPUSCULAR HGB CONC 34.9 g/dl (31.0-37.0); MEAN PLATELET VOLUME 9.9 fl (7.0-11.0); MONO # 0.5 (0.1-0.6); MONO % 5.7 % (1.0-6.0); RBC 5.28 10^6/uL (3.5-6.1); RED CELL DISTRIBUTION WIDTH 15.2 % (11.5-14.5); WHITE BLOOD COUNT 8.4 10^3/ul (4.5-11.0)
[2017-11-20 16:29] LABS: INR 0.92 (0.93-1.08); PARTIAL THROMBOPLASTIN TIME 30.4 Seconds (25.1-36.5); PROTHROMBIN TIME 10.5 SECONDS (9.4-12.5)
[2017-11-20 16:31] LABS: ALB/GLOB RATIO 1.4 (1.1-1.8); ALBUMIN 4.4 g/dL (3.0-4.8); ALT/SGPT 34 U/L (7-56); AST/SGOT 33 U/L (14-36); BLOOD UREA NITROGEN 21 mg/dL (7-21); CALCIUM 10.2 mg/dL (8.4-10.5); GFR AFRICAN-AMERICAN > 60; GFR NON-AFRICAN AMERICAN > 60
[2017-11-20 16:42] LABS: TROPONIN I < 0.01 ng/mL
[2017-11-20 16:43] LABS: B-TYPE NATRIURETIC PEPTIDE < 11.1 pg/mL (0-450)
--- NOTE | 2017-11-20 17:01 | ED PDOC ---
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 Notes sudden onset of chest pain with shortness of breathe this afternoon. States she have had similar symptom in the past. She states that she had a stress test 3weeks ago and saw her Machine Staker on Thursday. Notes that she was told that "she have one clogged artery". States she is pending appointment for cardiac catherization. She denies wheezing, dizziness, LE edema, diaphoresis , focal weakness, nausea, vomiting, tearing/ripping upper back pain, any other complaint. Past Medical History - Provider Review Nursing Documentation Reviewed: Yes - Infectious Disease Hx of Infectious Diseases: None - Tetanus Immunization Tetanus Immunization: Unknown - Cardiac Hx Cardiac Disorders: Yes (palpitations) Hx Angina: No Hx Cardiac Arrhythmia: No Hx Circulatory Problems: No Hx Congestive Heart Failure: No Hx Heart Murmur: No Hx Heart Transplant: No Hx Hypertension: No Hx Internal Defibrillator: No Hx Mitral Valve Prolapse: No Hx Pacemaker: No Hx Peripheral Edema: No Hx Peripheral Vascular Disease: No - Pulmonary Hx Respiratory Disorders: Yes Hx Asthma: Yes Hx Bronchitis: No Hx Chronic Obstructive Pulmonary Disease (COPD): No Hx Emphysema: No Hx Pneumonia: No Hx Respiratory Aspiration: No Hx Respiratory Tract Infection: No Hx Sleep Apnea: No Hx Tuberculosis: No - Neurological Hx Neurological Disorder: Yes Hx Alzheimer's Disease: No HX Cerebrovascular Accident: No Hx Dementia: No Hx Dizziness: Yes Hx Meningitis: No Hx Migraine: No Hx Parkinson's Disease: No Hx Seizures: No Hx Transient Ischemic Attacks (TIA): No - HEENT Hx HEENT Disorder: Yes (wears glasses) Hx Blind: No Hx Cataracts: Yes Hx Deafness: No Hx Difficulty Chewing: No Hx Epistaxis: No Hx Glaucoma: No Hx Macular Degeneration: No - Renal Hx Renal Disorder: No Hx Dialysis: No Hx Kidney Stones: No Hx Neurogenic Bladder: No Hx Pyelonephritis: No Hx Renal Cancer: No Hx Renal Failure: No - Endocrine/Metabolic Hx Endocrine Disorders: Yes Hx Adrenal Cancer: No Hx Diabetes Insipidus: No Hx Diabetes Mellitus Type 1: No Hx Diabetes Mellitus Type 2: Yes Hx Hyperthyroidism: No Hx Hypothyroidism: No Hx Systemic Lupus Erythematosus: No - Hematological/Oncological Hx Blood Disorders: Yes Hx AIDS: No Hx Anemia: No Hx Cancer: No Hx Chemotherapy: No Hx Cirrhosis: No Hx Hemophilia: No Hx Hepatitis A: No Hx Hepatitis B: No Hx Hepatitis C: No Hx Metastasis: No Hx Shingles: Yes Hx Sickle Cell Disease: No Hx Unexplained Bleeding: No - Integumentary Hx Dermatological Disorder: No Hx Basal Cell Carcinoma: No Hx Eczema: No Hx Melanoma: No Hx Psoriasis: No Hx Squamous Cell Carcinoma: No - Musculoskeletal/Rheumatological Hx Musculoskeletal Disorders: Yes Hx Arthritis: Yes Hx Back Pain: No Hx Degenerative Joint Disease: No Hx Falls: No Hx Fractures: No Hx Gout: No Hx Herniated Disk: No Hx Myasthenia Gravis: No Hx Osteoarthritis: No Hx Osteomyelitis: No Hx Osteoporosis: No Hx Rhabdomyolysis: No Hx Spinal Stenosis: No Hx Unsteady Gait: No - Gastrointestinal Hx Gastrointestinal Disorders: Yes (Vomiting and diarrhea. Hemorrhoids.) Hx Colostomy: No Hx Crohn's Disease: No Hx Diverticulitis: No Hx Gall Bladder Disease: No Hx Gastroesophageal Reflux: Yes Hx Gastrointestinal Ulcer: No Hx Ileostomy: No Hx Liver Failure: No Hx Pancreatitis: No HX Swallowing Problems: No - Genitourinary/Gynecological Hx Genitourinary Disorders: Yes Hx Hematuria: No Hx Incontinence: No Hx Prostate Problems: No Hx Sexually Transmitted Diseases: No Hx Urinary Tract Infection: Yes - Psychiatric Hx Psychophysiologic Disorder: Yes Hx Anxiety: Yes Hx Bipolar Disorder: No Hx Depression: Yes Hx Emotional Abuse: No Hx Hallucinations: No Hx Panic Disorder: No Hx Post Traumatic Stress Disorder: No Hx Psychosis: No Hx Physical Abuse: No Hx Schizophrenia: No Hx Sexual Abuse: No Hx Substance Use: No - Past Surgical History Past Surgical History: No Previous - Surgical History Hx Amputation: No Hx Appendectomy: No Hx Cardiac Catheterization: No Hx Cholecystectomy: No Hx Coronary Stent: No Hx Gastric Bypass Surgery: No Hx Hysterectomy: No Hx Joint Replacement: No Hx Kidney Transplant: No Hx Liver Transplant: No Hx Mastectomy: No Hx Musculoskeletal Surgery: No Hx Open Heart Surgery: No Hx Orthopedic Surgery: No Hx Splenectomy: No Hx Valve Replacement: No - Anesthesia Hx Anesthesia: Yes Hx Anesthesia Reactions: No Hx Malignant Hyperthermia: No - Suicidal Assessment Feels Threatened In Home Enviroment: No Family/Social History - Physician Review Nursing Documentation Reviewed: Yes Family/Social History: Unknown Family HX Smoking Status: Never Smoked Hx Alcohol Use: No Hx Substance Use: No Hx Substance Use Treatment: No Allergies/Home Meds Allergies/Adverse Reactions: Allergies No Known Allergies Allergy (Verified 11/20/17 15:35) Home Medications: Home Meds Medication Instructions Recorded Confirmed Albuterol HFA [Ventolin HFA 90 60 mcg PO DAILY 05/20/17 05/20/17 mcg/actuation (8 g)] Benzonatate 200 mg PO DAILY 05/20/17 05/20/17 Citalopram [celEXA] 20 mg PO BID 05/20/17 05/20/17 Empagliflozin [Jardiance] 10 mg PO DAILY 05/20/17 05/20/17 Fluticasone Propionate [Flovent 50 mcg IH DAILY 05/20/17 05/20/17 Diskus] Fluticasone Propionate [Flovent 0.22 mg IH BID 05/20/17 05/20/17 Hfa] Loratadine [Claritin] 10 mg PO DAILY 05/20/17 05/20/17 Lovastatin 40 mg PO DAILY 05/20/17 05/20/17 Metformin HCl [Glucophage] 500 mg PO TID 05/20/17 05/20/17 Montelukast [Singulair] 10 mg PO DAILY 05/20/17 05/20/17 Ondansetron [Zofran Tab] 4 mg PO DAILY 05/20/17 05/20/17 QUEtiapine [SEROquel] 50 mg PO HS 05/20/17 05/20/17 QUEtiapine [SEROquel] 200 mg PO HS 05/20/17 05/20/17 Ranitidine HCl [Zantac] 300 mg PO DAILY 05/20/17 05/20/17 clonazePAM [Klonopin] 1 mg PO HS 05/20/17 05/20/17 Review of Systems - Physician Review All systems were reviewed & negative as marked: Yes - Review of Systems Constitutional: Normal Eyes: Normal ENT: Normal Respiratory: SOB. absent: Cough, Sputum, Wheezing Cardiovascular: Chest Pain. absent: Palpitations, Edema, Calf Pain, MCNULTY, Orthopnea Gastrointestinal: Normal Genitourinary Female: Normal Musculoskeletal: Normal Skin: Normal Neurological: Normal Endocrine: Normal Hemo/Lymphatic: Normal Psychiatric: Normal Physical Exam Vital Signs Reviewed: Yes Vital Signs Temp Pulse Resp BP Pulse Ox 11/20/17 15:52 97.5 F L 99 H 17 137/74 99 Temperature: Afebrile Blood Pressure: Normal Pulse: Regular Respiratory Rate: Normal Appearance: Positive for: Well-Appearing, Non-Toxic, Comfortable Pain Distress: None Mental Status: Positive for: Alert and Oriented X 3 - Systems Exam Head: Present: Atraumatic, Normocephalic Pupils: Present: PERRL Extroacular Muscles: Present: EOMI Conjunctiva: Present: Normal Mouth: Present: Moist Mucous Membranes Neck: Present: Normal Range of Motion Respiratory/Chest: Present: Clear to Auscultation, Good Air Exchange. No: Respiratory Distress, Accessory Muscle Use, Wheezes, Decreased Breath Sounds, Rales, Retracting, Rhonchi Cardiovascular: Present: Regular Rate and Rhythm, Normal S1, S2. No: Murmurs Abdomen: No: Tenderness, Distention, Peritoneal Signs Back: Present: Normal Inspection Upper Extremity: Present: Normal Inspection. No: Cyanosis, Edema Lower Extremity: Present: Normal Inspection. No: Edema Neurological: Present: GCS=15, CN II-XII Intact, Speech Normal Skin: Present: Warm, Dry, Normal Color. No: Rashes Psychiatric: Present: Alert, Oriented x 3, Normal Insight, Normal Concentration Medical Decision Making ED Course and Treatment: 11/20/17 17:03 PT in Emergency department for stated history. On reevaluation she notes that her pain resoled in Emergency department with medications. Her lung was CTA b/ l. She remain hemodynamically stable. First CE and di dimer was negative. EKG Sinus rhythm with fusion complexes at 98bpm Chest X-ray NAD Patient with cardiac risk secondary to her co morbidities needs admission for further evaluation by a Machine Staker. Pt however declined Admission. this was translated by Tanesha, with registration. Patient understood and expressed understanding of the risk of cardiac arrest, disability and even that can occur. She states she have her own Machine Staker will rather follow up with the Machine Staker. She insisted on signing out Leaving Against Medical Advice (AMA): The patient is choosing to leave against medical advice. I have personally explained to the patient that choosing to do so may result in permanent bodily harm or . I have discussed at great length that without further evaluation and monitoring there may be unforeseen circumstances and/or deterioration causing permanent bodily harm or as a result of their choice. The patient is alert, oriented, and shows the mental capacity to make clear decisions regarding the patients health care at this time. The patient continues to wish to leave against medical advice. In light of the patients decision to leave against medical advice, follow-up has been arranged and the patient is aware of the importance to following up as instructed. The patient has been advised that they should return to the emergency room immediately if they change their mind at any time, or if their condition begins to change or worsen in any way.. She have the mental capability , AAO x3 to make this decision. She signed out Leaving Against Medical Advice - Lab Interpretations Lab Results: 11/20/17 16:00 11/20/17 16:00 Lab Results 11/20/17 16:00: Sodium 138, Potassium 4.5, Chloride 101, Carbon Dioxide 21, Anion Gap 20, BUN 21, Creatinine 0.7, Est GFR ( Amer) > 60, Est GFR (Non- Af Amer) > 60, Random Glucose 150 H, Calcium 10.2, Magnesium 1.9, Total Bilirubin 0.6, AST 33, ALT 34, Alkaline Phosphatase 125, Lactate Dehydrogenase 545, Total Creatine Kinase 212, Troponin I < 0.01, NT-Pro-B Natriuret Pep < 11.1 , Total Protein 7.5, Albumin 4.4, Globulin 3.1, Albumin/Globulin Ratio 1.4 11/20/17 16:00: PT 10.5, INR 0.92 L, APTT 30.4, D-Dimer, Quantitative 195 11/20/17 16:00: WBC 8.4 D, RBC 5.28, Hgb 15.0 D, Hct 43.0, MCV 81.4, MCH 28.4 , MCHC 34.9, RDW 15.2 H, Plt Count 352, MPV 9.9, Gran % 57.9, Lymph % (Auto) 35.5 H, Glades % (Auto) 5.7, Eos % (Auto) 0.8 L, Baso % (Auto) 0.1, Gran # 4.88, Lymph # (Auto) 3.0, Glades # (Auto) 0.5, Eos # (Auto) 0.1, Baso # (Auto) 0.01 - RAD Interpretation Radiology Orders: 11/20/17 15:46 CHEST PORTABLE [RAD] Stat - Medication Orders Current Medication Orders: Discontinued Medications Albuterol/Ipratropium (Duoneb 3 Mg/0.5 Mg (3 Ml) Ud) 3 ml IH Q15M STA Stop: 11/20/17 15:49 Last Admin: 11/20/17 16:01 Dose: 3 ml Methylprednisolone (Solu-Medrol) 125 mg IVP STAT STA Stop: 11/20/17 15:49 Last Admin: 11/20/17 16:01 Dose: 125 mg IVP Administration Document 11/20/17 16:01 MS (Rec: 11/20/17 16:01 [place] [id number] Charges for Administration # of IVP Administrations 1 Nitroglycerin (Nitrostat Sl Tab) 0.4 mg SL STAT STA Stop: 11/20/17 15:47 Last Admin: 11/20/17 15:59 Dose: 0.4 mg Disposition/Present on Arrival - Present on Arrival Any Indicators Present on Arrival: No History of DVT/PE: No History of Uncontrolled Diabetes: No Urinary Catheter: No History of Decub. Ulcer: No History Surgical Site Infection Following: None - Disposition Have Diagnosis and Disposition been Completed?: Yes Diagnosis: Chest pain, Asthma Disposition: AGAINST MEDICAL ADVICE Disposition Time: 16:55 Patient Problems: Current Active Problems Problem Status Onset Asthma Acute Chest pain Acute Condition: FAIR Discharge Instructions (ExitCare): Chest Pain (ED) Referrals: Danielle Young DO [Primary Care Provider] - Follow up with primary
[2017-11-20 19:02] VITALS: BP 130/78; PULSE 82; RESP 16; O2SAT 98
--- NOTE | 2017-11-21 09:36 | RAD ---
HISTORY: chest pain COMPARISON: 05/20/2017 FINDINGS: LUNGS: Examination limited by poor inspiratory effort. No infiltrate. PLEURA: No significant pleural effusion identified, no pneumothorax apparent. CARDIOVASCULAR: Normal. OSSEOUS STRUCTURES: No significant abnormalities. VISUALIZED UPPER ABDOMEN: Normal. OTHER FINDINGS: None. IMPRESSION: No active disease.
--- NOTE | 2017-11-21 09:40 | CARD ---
APPROVED REPORT EKG Measurement Heart [id number] <Conclusion> Sinus rhythm Normal ECG
== END 2017-11-20 17:00 | disposition left against medical advice (07) ==
LOC: ED 15:25
DX: J45.909 Unspecified asthma, uncomplicated (principal); R07.9 Chest pain, unspecified; E11.9 Type 2 diabetes mellitus without complications
CPT/HCPCS: 71045; 80053; 82550; 83615; 83735; 83880; 84484; 85025; 85378; 85610; 85730; 93005; 96374; 99283; J2930

== ENCOUNTER 2018-01-23 11:48 | Emergency (ER) | payer MEDICAID ==
[2018-01-23] MEDS ORDERED: Sodium Chloride 0.9% 1,000 ML IV STA (12:02)
[2018-01-23 12:03] VITALS: TEMP 97.8; O2SAT 98; BMI 42.0
--- NOTE | 2018-01-23 12:34 | ED PDOC ---
Arrival/HPI - General Chief Complaint: GI Problem Time Seen by Provider: 01/23/18 12:00 Historian: Patient - History of Present Illness Narrative History of Present Illness (Text): 01/23/18 12:29 A 52 year old female, whose past medical history includes diabetes hyperlipidemia, gastritis, presents to the emergency department with a complaint of 5 day duration nausea, 2 day duration non-bilious, non- bloody emesis, epigastric, supra-umbilical pain, generalized malaise, and loose stools. The patient notes that the abdominal pain is exacerbated after eating and associated with nausea. She notes that she has seen her histotechnologist in [place] for her complaints who scheduled her for an endoscopy. She also notes that she was seen at another institution for her symptoms and her labs were normal. She denies fevers, chills, headache, dizziness, chest pain, shortness of breath, dyspnea on exertion, cough, back pain, neck pain, urinary changes, hemoptesis, hematchezia or any other complaint. PMD: Hector Time/Duration: Other (Several Days) Symptom Onset: Sudden Symptom Course: Unchanged Activities at Onset: Rest, Light Context: Home Past Medical History - Provider Review Nursing Documentation Reviewed: Yes - Infectious Disease Hx of Infectious Diseases: None - Tetanus Immunization Tetanus Immunization: Unknown - Cardiac Hx Cardiac Disorders: Yes (palpitations) Hx Angina: No Hx Cardiac Arrhythmia: No Hx Circulatory Problems: No Hx Congestive Heart Failure: No Hx Heart Murmur: No Hx Heart Transplant: No Hx Hypertension: No Hx Internal Defibrillator: No Hx Mitral Valve Prolapse: No Hx Pacemaker: No Hx Peripheral Edema: No Hx Peripheral Vascular Disease: No - Pulmonary Hx Respiratory Disorders: Yes Hx Asthma: Yes Hx Bronchitis: No Hx Chronic Obstructive Pulmonary Disease (COPD): No Hx Emphysema: No Hx Pneumonia: No Hx Respiratory Aspiration: No Hx Respiratory Tract Infection: No Hx Sleep Apnea: No Hx Tuberculosis: No - Neurological Hx Neurological Disorder: Yes Hx Alzheimer's Disease: No HX Cerebrovascular Accident: No Hx Dementia: No Hx Dizziness: Yes Hx Meningitis: No Hx Migraine: No Hx Parkinson's Disease: No Hx Seizures: No Hx Transient Ischemic Attacks (TIA): No - HEENT Hx HEENT Disorder: Yes (wears glasses) Hx Blind: No Hx Cataracts: Yes Hx Deafness: No Hx Difficulty Chewing: No Hx Epistaxis: No Hx Glaucoma: No Hx Macular Degeneration: No - Renal Hx Renal Disorder: No Hx Dialysis: No Hx Kidney Stones: No Hx Neurogenic Bladder: No Hx Pyelonephritis: No Hx Renal Cancer: No Hx Renal Failure: No - Endocrine/Metabolic Hx Endocrine Disorders: Yes Hx Adrenal Cancer: No Hx Diabetes Insipidus: No Hx Diabetes Mellitus Type 1: No Hx Diabetes Mellitus Type 2: Yes Hx Hyperthyroidism: No Hx Hypothyroidism: No Hx Systemic Lupus Erythematosus: No - Hematological/Oncological Hx Blood Disorders: Yes Hx AIDS: No Hx Anemia: No Hx Cancer: No Hx Chemotherapy: No Hx Cirrhosis: No Hx Hemophilia: No Hx Hepatitis A: No Hx Hepatitis B: No Hx Hepatitis C: No Hx Metastasis: No Hx Shingles: Yes Hx Sickle Cell Disease: No Hx Unexplained Bleeding: No - Integumentary Hx Dermatological Disorder: No Hx Basal Cell Carcinoma: No Hx Eczema: No Hx Melanoma: No Hx Psoriasis: No Hx Squamous Cell Carcinoma: No - Musculoskeletal/Rheumatological Hx Musculoskeletal Disorders: Yes Hx Arthritis: Yes Hx Back Pain: No Hx Degenerative Joint Disease: No Hx Falls: No Hx Fractures: No Hx Gout: No Hx Herniated Disk: No Hx Myasthenia Gravis: No Hx Osteoarthritis: No Hx Osteomyelitis: No Hx Osteoporosis: No Hx Rhabdomyolysis: No Hx Spinal Stenosis: No Hx Unsteady Gait: No - Gastrointestinal Hx Gastrointestinal Disorders: Yes (Vomiting and diarrhea. Hemorrhoids.) Hx Colostomy: No Hx Crohn's Disease: No Hx Diverticulitis: No Hx Gall Bladder Disease: No Hx Gastroesophageal Reflux: Yes Hx Gastrointestinal Ulcer: No Hx Ileostomy: No Hx Liver Failure: No Hx Pancreatitis: No HX Swallowing Problems: No - Genitourinary/Gynecological Hx Genitourinary Disorders: Yes Hx Hematuria: No Hx Incontinence: No Hx Prostate Problems: No Hx Sexually Transmitted Diseases: No Hx Urinary Tract Infection: Yes - Psychiatric Hx Psychophysiologic Disorder: Yes Hx Anxiety: Yes Hx Bipolar Disorder: No Hx Depression: Yes Hx Emotional Abuse: No Hx Hallucinations: No Hx Panic Disorder: No Hx Post Traumatic Stress Disorder: No Hx Psychosis: No Hx Physical Abuse: No Hx Schizophrenia: No Hx Sexual Abuse: No Hx Substance Use: No - Past Surgical History Past Surgical History: No Previous - Surgical History Hx Amputation: No Hx Appendectomy: No Hx Cardiac Catheterization: No Hx Cholecystectomy: No Hx Coronary Stent: No Hx Gastric Bypass Surgery: No Hx Hysterectomy: No Hx Joint Replacement: No Hx Kidney Transplant: No Hx Liver Transplant: No Hx Mastectomy: No Hx Musculoskeletal Surgery: No Hx Open Heart Surgery: No Hx Orthopedic Surgery: No Hx Splenectomy: No Hx Valve Replacement: No - Anesthesia Hx Anesthesia: Yes Hx Anesthesia Reactions: No Hx Malignant Hyperthermia: No - Suicidal Assessment Feels Threatened In Home Enviroment: No Family/Social History - Physician Review Nursing Documentation Reviewed: Yes Family/Social History: No Known Family HX Smoking Status: Never Smoked Hx Alcohol Use: No Hx Substance Use: No Hx Substance Use Treatment: No Allergies/Home Meds Allergies/Adverse Reactions: Allergies No Known Allergies Allergy (Verified 11/20/17 15:35) Home Medications: Home Meds Medication Instructions Recorded Confirmed Albuterol HFA [Ventolin HFA 90 60 mcg PO DAILY 05/20/17 05/20/17 mcg/actuation (8 g)] Benzonatate 200 mg PO DAILY 05/20/17 05/20/17 Citalopram [celEXA] 20 mg PO BID 05/20/17 05/20/17 Empagliflozin [Jardiance] 10 mg PO DAILY 05/20/17 05/20/17 Fluticasone Propionate [Flovent 50 mcg IH DAILY 05/20/17 05/20/17 Diskus] Fluticasone Propionate [Flovent 0.22 mg IH BID 05/20/17 05/20/17 Hfa] Loratadine [Claritin] 10 mg PO DAILY 05/20/17 05/20/17 Lovastatin 40 mg PO DAILY 05/20/17 05/20/17 Metformin HCl [Glucophage] 500 mg PO TID 05/20/17 05/20/17 Montelukast [Singulair] 10 mg PO DAILY 05/20/17 05/20/17 Ondansetron [Zofran Tab] 4 mg PO DAILY 05/20/17 05/20/17 QUEtiapine [SEROquel] 50 mg PO HS 05/20/17 05/20/17 QUEtiapine [SEROquel] 200 mg PO HS 05/20/17 05/20/17 Ranitidine HCl [Zantac] 300 mg PO DAILY 05/20/17 05/20/17 clonazePAM [Klonopin] 1 mg PO HS 05/20/17 05/20/17 Review of Systems - Physician Review All systems were reviewed & negative as marked: Yes - Review of Systems Constitutional: Other (Generalized malaise. ). absent: Fevers, Night Sweats Respiratory: absent: SOB, Cough Cardiovascular: absent: Chest Pain, MCNULTY Gastrointestinal: Abdominal Pain (epigastric, supra-umbilical), Diarrhea (Loose stools), Nausea, Vomiting. absent: Hematochezia, Hematemesis Genitourinary Female: absent: Urine Output Changes Musculoskeletal: absent: Back Pain, Neck Pain Neurological: absent: Headache, Dizziness Physical Exam Vital Signs Temp Pulse Resp BP Pulse Ox 01/23/18 12:45 72 18 144/77 98 01/23/18 12:00 97.8 F 88 17 177/104 H 98 Temperature: Afebrile Blood Pressure: Hypertensive Pulse: Regular Respiratory Rate: Normal Appearance: Positive for: Non-Toxic Pain Distress: Mild Mental Status: Positive for: Alert and Oriented X 3 - Systems Exam Head: Present: Atraumatic, Normocephalic Pupils: Present: PERRL Extroacular Muscles: Present: EOMI Conjunctiva: Present: Normal Mouth: Present: Moist Mucous Membranes Neck: Present: Normal Range of Motion Respiratory/Chest: Present: Clear to Auscultation, Good Air Exchange. No: Respiratory Distress, Accessory Muscle Use Cardiovascular: Present: Regular Rate and Rhythm, Normal S1, S2. No: Murmurs Abdomen: Present: Tenderness (Supraumbilical and epigastric tenderness. ) Back: Present: Normal Inspection Upper Extremity: Present: Normal Inspection. No: Cyanosis, Edema Lower Extremity: Present: Normal Inspection. No: Edema Neurological: Present: GCS=15, CN II-XII Intact, Speech Normal Skin: Present: Warm, Dry, Normal Color. No: Rashes Psychiatric: Present: Alert, Oriented x 3, Normal Insight, Normal Concentration Medical Decision Making ED Course and Treatment: 01/23/18 12:36 Impression: A 52 year old female presents to [facility] emergency department with several day duration supraumbilical and epigastric abdominal pain, vomiting, nausea, diarrhea, and generalized malaise. Plan: -- EKG -- Abdominal X- Ray -- Chest X-ray -- Labs -- Urinalysis -- Pepcid, Reglan, Zofran, and IV Fluids -- Reassess and disposition Progress Notes: 01/23/18 12:40 EKG: Ordered, reviewed, and independently interpreted the EKG. Rate : 77 BPM Rhythm : NSR Interpretation : No ischemic ST-T segments and no arrhythmogenic intervals. 01/23/18 17:20 ct findings essentially negative for any acute intrabdominal findings. Pt to be discharged on slow diet advancement for gastritis w/ discharge instructions for pancreatitis. Advised PMD f/u . PROCEDURE: CT Abdomen and Pelvis with contrast Dictator : Russel Persaud MD Report Date : 01/23/2018 17:12:55 IMPRESSION: No CT evidence of acute pancreatitis. Minor findings as above. PROCEDURE: CHEST RADIOGRAPH, 1 VIEW Creator : Weston Shea MD Report Date : 01/23/2018 17:39:34 IMPRESSION: Poor inspiration with low lung volumes with crowded bronchovascular markings and mild bibasilar atelectasis - Lab Interpretations Lab Results: 01/23/18 12:30 01/23/18 14:33 Lab Results 01/23/18 14:33: Sodium 144, Potassium 4.3, Chloride 107, Carbon Dioxide 25, Anion Gap 16, BUN 18, Creatinine 0.7, Est GFR ( Amer) > 60, Est GFR (Non- Af Amer) > 60, Random Glucose 105, Calcium 8.8, Magnesium 1.7, Total Bilirubin 0.2, AST 23, ALT 29, Alkaline Phosphatase 76, Lactate Dehydrogenase 386, Total Creatine Kinase 52, Troponin I < 0.01, Total Protein 6.7, Albumin 4.1, Globulin 2.6, Albumin/Globulin Ratio 1.6, Lipase 524 H 01/23/18 12:30: WBC 6.4 D, RBC 5.32, Hgb 15.4, Hct 45.3, MCV 85.2 D, MCH 28.9 , MCHC 34.0, RDW 14.2, Plt Count 306, MPV 10.1, Gran % 62.8, Lymph % (Auto) 30.8 , [place] % (Auto) 5.3, Eos % (Auto) 0.8 L, Baso % (Auto) 0.3, Gran # 4.03, Lymph # (Auto) 2.0, [place] # (Auto) 0.3, Eos # (Auto) 0.1, Baso # (Auto) 0.02 I have reviewed the lab results: Yes - RAD Interpretation Radiology Orders: 01/23/18 12:01 CHEST ONE VIEW [RAD] Stat 01/23/18 15:59 ABD & PELVIS IV CONTRAST ONLY [CT] Stat - EKG Interpretation Interpreted by ED Physician: Yes Type: 12 lead EKG - Medication Orders Current Medication Orders: Discontinued Medications Al Hydrox/Mg Hydrox/Simethicone (Maalox Plus 30 Ml) 30 ml PO STAT STA Stop: 01/23/18 14:00 Last Admin: 01/23/18 14:59 Dose: 30 ml Belladonna/Phenobarbital ( Elixir) 5 ml PO STAT STA Stop: 01/23/18 14:00 Last Admin: 01/23/18 15:00 Dose: 5 ml Famotidine (Pepcid) 40 mg IVP STAT STA Stop: 01/23/18 12:29 Last Admin: 01/23/18 12:48 Dose: 40 mg IVP Administration Document 01/23/18 12:48 EQ (Rec: 01/23/18 12:48 EQ [id number]) Charges for Administration # of IVP Administrations 1 Sodium Chloride (Sodium Chloride 0.9%) 1,000 mls @ 999 mls/hr IV .Q1H1M STA Stop: 01/23/18 13:02 Last Admin: 01/23/18 12:49 Dose: 999 mls/hr eMAR Start Stop Document 01/23/18 12:49 EQ (Rec: 01/23/18 12:49 EQ [id number]) Intravenous Solution Start Date 01/23/18 Start Time 12:49 Lidocaine HCl (Lidocaine 2% Viscous) 15 ml PO ONCE ONE Stop: 01/23/18 14:47 Last Admin: 01/23/18 14:59 Dose: 15 ml Metoclopramide HCl (Reglan) 10 mg IVP STAT STA Stop: 01/23/18 12:29 Last Admin: 01/23/18 12:47 Dose: 10 mg IVP Administration Document 01/23/18 12:47 EQ (Rec: 01/23/18 12:47 EQ [id number]) Charges for Administration # of IVP Administrations 1 - Scribe Statement The provider has reviewed the documentation as recorded by the Scribe Hanny Calhoun Provider Scribe Attestation: All medical record entries made by the Scribe were at my direction and personally dictated by me. I have reviewed the chart and agree that the record accurately reflects my personal performance of the history, physical exam, medical decision making, and the department course for this patient. I have also personally directed, reviewed, and agree with the discharge instructions and disposition. Disposition/Present on Arrival - Present on Arrival Any Indicators Present on Arrival: No History of DVT/PE: No History of Uncontrolled Diabetes: No Urinary Catheter: No History of Decub. Ulcer: No History Surgical Site Infection Following: None - Disposition Have Diagnosis and Disposition been Completed?: Yes Diagnosis: Gastritis Disposition: HOME/ ROUTINE Disposition Time: 17:22 Patient Plan: Discharge Patient Problems: Current Active Problems Problem Status Onset Gastritis Acute Condition: GUARDED Discharge Instructions (ExitCare): Gastritis (DC) Print Language: MONTSERRATIAN Additional Instructions: Por favor avanza byrnes dieta despaciomente. Comenzando con bananas/sopas claras/ craquetillas/ butt tostada/ papayas/ y evite productos de carne y queso/cafe/alcohol . Prescriptions: Famotidine [Pepcid] 20 mg PO BID PRN #40 tab PRN Reason: Dyspepsia Metoclopramide [Reglan] 10 mg PO Q8 PRN 3 Days dose PRN Reason: Nausea/Vomiting Referrals: Maria De Jesus Hunter MD [Medical Doctor] - Follow up with primary Forms: [employer] (Austrian)
[2018-01-23 12:46] VITALS: RESP 18
[2018-01-23 13:20] LABS: BASO # 0.02 K/mm3 (0.0-2.0); BASO % 0.3 % (0.0-3.0); EOS # 0.1 (0.0-0.7); EOS % 0.8 % (1.5-5.0); GRAN # 4.03 (1.4-6.5); GRAN % 62.8 % (50.0-68.0); HEMOGLOBIN 15.4 g/dL (12.0-16.0); LYMPH % 30.8 % (22.0-35.0); MEAN CELL VOLUME 85.2 fl (80.0-105.0); MEAN CORPUSCULAR HEMOGLOBIN 28.9 pg (25.0-35.0); MEAN PLATELET VOLUME 10.1 fl (7.0-11.0); MONO # 0.3 (0.1-0.6); MONO % 5.3 % (1.0-6.0); RBC 5.32 10^6/uL (3.5-6.1); RED CELL DISTRIBUTION WIDTH 14.2 % (11.5-14.5); WHITE BLOOD COUNT 6.4 10^3/ul (4.5-11.0)
[2018-01-23] MEDS ORDERED: Atrop/Hyosc/Scopal/PB Elixir (120 ml) PO STA (13:59)
[2018-01-23] MEDS ORDERED: Alum-Mag Hydrox-Simethicone Susp (30 mL) PO STA (13:59)
--- NOTE | 2018-01-23 14:00 | CARD ---
APPROVED REPORT EKG Measurement Heart [id number] <Conclusion> Normal sinus rhythm Cannot rule out Anterior infarct, age undetermined Abnormal ECG
[2018-01-23 14:49] LABS: ALB/GLOB RATIO 1.6 (1.1-1.8); ALBUMIN 4.1 g/dL (3.0-4.8); ALT/SGPT 29 U/L (7-56); AST/SGOT 23 U/L (14-36); BLOOD UREA NITROGEN 18 mg/dL (7-21); CALCIUM 8.8 mg/dL (8.4-10.5); GFR AFRICAN-AMERICAN > 60; GFR NON-AFRICAN AMERICAN > 60; LIPASE 524 U/L (23-300)
[2018-01-23 15:00] LABS: TROPONIN I < 0.01 ng/mL
[2018-01-23] MEDS ORDERED: Iohexol 350 MG/100 ML VIAL ONE (16:15)
--- NOTE | 2018-01-23 17:14 | CT ---
PROCEDURE: CT Abdomen and Pelvis with contrast HISTORY: pancreatitis COMPARISON: None. TECHNIQUE: Contrast dose: 100 mL Omnipaque 350 Radiation dose: Total exam DLP = 1584.04 mGy-cm. This CT exam was performed using one or more of the following dose reduction techniques: Automated exposure control, adjustment of the mA and/or kV according to patient size, and/or use of iterative reconstruction technique. FINDINGS: LOWER THORAX: Unremarkable. LIVER: Normal size, contour and attenuation. There are 2 small nodular calcifications in the right hepatic lobe consistent with old calcified granulomas. No mass. No biliary ductal dilatation. GALLBLADDER AND BILE DUCTS: Unremarkable. PANCREAS: No mass. No peripancreatic fluid or inflammatory change. No pancreatic ductal dilatation. SPLEEN: Minimal splenomegaly. ADRENALS: Unremarkable. No mass. KIDNEYS AND URETERS: Unremarkable. No hydronephrosis. No solid mass. VASCULATURE: Unremarkable. No aortic aneurysm. BOWEL: Diverticulosis of the distal descending and sigmoid colon. No evidence of diverticulitis. No bowel obstruction. No other abnormal bowel loops are identified. APPENDIX: Not identified. No secondary findings. PERITONEUM: Unremarkable. No free fluid. No free air. LYMPH NODES: Unremarkable. No enlarged lymph nodes. BLADDER: Unremarkable. REPRODUCTIVE: Normal uterus BONES: No acute fracture. OTHER FINDINGS: None. IMPRESSION: No CT evidence of acute pancreatitis. Minor findings as above.
--- NOTE | 2018-01-23 17:41 | RAD ---
PROCEDURE: CHEST RADIOGRAPH, 1 VIEW HISTORY: dizziness COMPARISON: None available. FINDINGS: LUNGS: Poor inspiration with low lung volumes with crowded bronchovascular markings and mild bibasilar atelectasis PLEURA: No pneumothorax or pleural fluid seen. CARDIOVASCULAR: Normal. OSSEOUS STRUCTURES: No significant abnormalities. VISUALIZED UPPER ABDOMEN: Normal. OTHER FINDINGS: None. IMPRESSION: Poor inspiration with low lung volumes with crowded bronchovascular markings and mild bibasilar atelectasis
[2018-01-23 18:02] LABS: URINE BILIRUBIN NEGATIVE (NEGATIVE); URINE BLOOD TRACE-LYSED (NEGATIVE); URINE GLUCOSE (UA) >=1000 mg/dL (NEGATIVE); URINE LEUKOCYTE ESTERASE TRACE Leu/uL (NEGATIVE); URINE PROTEIN NEGATIVE mg/dL (<30 mg/dL); URINE UROBILINOGEN 0.2 E.U./dL (<1 E.U./dL)
[2018-01-23 18:03] LABS: URINE APPEARANCE SL CLOUDY (CLEAR); URINE COLOR YELLOW (YELLOW)
[2018-01-23 18:11] LABS: URINE BACTERIA MANY (NEG)
[2018-01-23 22:20] VITALS: BP 129/78; PULSE 87
== END 2018-01-23 18:45 | disposition home or self-care (01) ==
LOC: ED 11:48
DX: K29.70 Gastritis, unspecified, without bleeding (principal); E11.9 Type 2 diabetes mellitus without complications; E78.5 Hyperlipidemia, unspecified
CPT/HCPCS: 71045; 74177; 80053; 81001; 82550; 83615; 83690; 83735; 84484; 85025; 87086; 87181; 93005; 96374; 96375; 99284; J2765; J7030; Q9967

== ENCOUNTER 2018-03-15 11:22 | Emergency (ER) | payer MEDICAID ==
[2018-03-15 11:22] VITALS: BMI 42.0
--- NOTE | 2018-03-15 11:34 | ED PDOC ---
Arrival/HPI - General Time Seen by Provider: 03/15/18 11:33 Historian: Patient - History of Present Illness Narrative History of Present Illness (Text): 03/15/18 11:34 52 y/o female, pmh including dm/asthma/shingles/gastroparesis, allergic to nsaid ?, c/o rt. flank pain and hematuria on and off for the past few weeks with no fall or trauma. Pt. stated that she saw the pmd Dr. Danielle Young today, told to come to the ER as there is concerning for the obstructive renal stone, no nausea or vomiting, no nausea or vomiting, no fever or chills, no headache or night sweat, no change in vision, no other medical or psychological complaints. Past Medical History - Provider Review Nursing Documentation Reviewed: Yes - Infectious Disease Hx of Infectious Diseases: None - Tetanus Immunization Tetanus Immunization: Unknown - Cardiac Hx Cardiac Disorders: Yes (palpitations) Hx Angina: No Hx Cardiac Arrhythmia: No Hx Circulatory Problems: No Hx Congestive Heart Failure: No Hx Heart Murmur: No Hx Heart Transplant: No Hx Hypertension: No Hx Internal Defibrillator: No Hx Mitral Valve Prolapse: No Hx Pacemaker: No Hx Peripheral Edema: No Hx Peripheral Vascular Disease: No - Pulmonary Hx Respiratory Disorders: Yes Hx Asthma: Yes Hx Bronchitis: No Hx Chronic Obstructive Pulmonary Disease (COPD): No Hx Emphysema: No Hx Pneumonia: No Hx Respiratory Aspiration: No Hx Respiratory Tract Infection: No Hx Sleep Apnea: No Hx Tuberculosis: No - Neurological Hx Neurological Disorder: Yes Hx Alzheimer's Disease: No HX Cerebrovascular Accident: No Hx Dementia: No Hx Dizziness: Yes Hx Meningitis: No Hx Migraine: No Hx Parkinson's Disease: No Hx Seizures: No Hx Transient Ischemic Attacks (TIA): No - HEENT Hx HEENT Disorder: Yes (wears glasses) Hx Blind: No Hx Cataracts: Yes Hx Deafness: No Hx Difficulty Chewing: No Hx Epistaxis: No Hx Glaucoma: No Hx Macular Degeneration: No - Renal Hx Renal Disorder: No Hx Dialysis: No Hx Kidney Stones: No Hx Neurogenic Bladder: No Hx Pyelonephritis: No Hx Renal Cancer: No Hx Renal Failure: No - Endocrine/Metabolic Hx Endocrine Disorders: Yes Hx Adrenal Cancer: No Hx Diabetes Insipidus: No Hx Diabetes Mellitus Type 1: No Hx Diabetes Mellitus Type 2: Yes Hx Hyperthyroidism: No Hx Hypothyroidism: No Hx Systemic Lupus Erythematosus: No - Hematological/Oncological Hx Blood Disorders: Yes Hx AIDS: No Hx Anemia: No Hx Cancer: No Hx Chemotherapy: No Hx Cirrhosis: No Hx Hemophilia: No Hx Hepatitis A: No Hx Hepatitis B: No Hx Hepatitis C: No Hx Metastasis: No Hx Shingles: Yes Hx Sickle Cell Disease: No Hx Unexplained Bleeding: No - Integumentary Hx Dermatological Disorder: No Hx Basal Cell Carcinoma: No Hx Eczema: No Hx Melanoma: No Hx Psoriasis: No Hx Squamous Cell Carcinoma: No - Musculoskeletal/Rheumatological Hx Musculoskeletal Disorders: Yes Hx Arthritis: Yes Hx Back Pain: No Hx Degenerative Joint Disease: No Hx Falls: No Hx Fractures: No Hx Gout: No Hx Herniated Disk: No Hx Myasthenia Gravis: No Hx Osteoarthritis: No Hx Osteomyelitis: No Hx Osteoporosis: No Hx Rhabdomyolysis: No Hx Spinal Stenosis: No Hx Unsteady Gait: No - Gastrointestinal Hx Gastrointestinal Disorders: Yes (Vomiting and diarrhea. Hemorrhoids.) Hx Colostomy: No Hx Crohn's Disease: No Hx Diverticulitis: No Hx Gall Bladder Disease: No Hx Gastroesophageal Reflux: Yes Hx Gastrointestinal Ulcer: No Hx Ileostomy: No Hx Liver Failure: No Hx Pancreatitis: No HX Swallowing Problems: No - Genitourinary/Gynecological Hx Genitourinary Disorders: Yes Hx Hematuria: No Hx Incontinence: No Hx Prostate Problems: No Hx Sexually Transmitted Diseases: No Hx Urinary Tract Infection: Yes - Psychiatric Hx Psychophysiologic Disorder: Yes Hx Anxiety: Yes Hx Bipolar Disorder: No Hx Depression: Yes Hx Emotional Abuse: No Hx Hallucinations: No Hx Panic Disorder: No Hx Post Traumatic Stress Disorder: No Hx Psychosis: No Hx Physical Abuse: No Hx Schizophrenia: No Hx Sexual Abuse: No Hx Substance Use: No - Past Surgical History Past Surgical History: No Previous - Surgical History Hx Amputation: No Hx Appendectomy: No Hx Cardiac Catheterization: No Hx Cholecystectomy: No Hx Coronary Stent: No Hx Gastric Bypass Surgery: No Hx Hysterectomy: No Hx Joint Replacement: No Hx Kidney Transplant: No Hx Liver Transplant: No Hx Mastectomy: No Hx Musculoskeletal Surgery: No Hx Open Heart Surgery: No Hx Orthopedic Surgery: No Hx Splenectomy: No Hx Valve Replacement: No - Anesthesia Hx Anesthesia: Yes Hx Anesthesia Reactions: No Hx Malignant Hyperthermia: No - Suicidal Assessment Feels Threatened In Home Enviroment: No Family/Social History - Physician Review Nursing Documentation Reviewed: Yes Family/Social History: Unknown Family HX Smoking Status: Never Smoked Hx Alcohol Use: No Hx Substance Use: No Hx Substance Use Treatment: No Allergies/Home Meds Allergies/Adverse Reactions: Allergies naproxen Allergy (Verified 03/15/18 11:31) RASH Home Medications: Home Meds Medication Instructions Recorded Confirmed Albuterol HFA [Ventolin HFA 90 60 mcg PO DAILY 05/20/17 03/15/18 mcg/actuation (8 g)] Benzonatate 200 mg PO DAILY 05/20/17 03/15/18 Citalopram [celEXA] 20 mg PO BID 05/20/17 03/15/18 Empagliflozin [Jardiance] 10 mg PO DAILY 05/20/17 03/15/18 Loratadine [Claritin] 10 mg PO DAILY 05/20/17 03/15/18 Lovastatin 40 mg PO DAILY 05/20/17 03/15/18 Metformin HCl [Glucophage] 850 mg PO BID 05/20/17 03/15/18 Montelukast [Singulair] 10 mg PO DAILY 05/20/17 03/15/18 Ondansetron [Zofran Tab] 4 mg PO DAILY 05/20/17 03/15/18 QUEtiapine [SEROquel] 300 mg PO HS 05/20/17 03/15/18 Ranitidine HCl [Zantac] 300 mg PO DAILY 05/20/17 03/15/18 Review of Systems - Review of Systems Constitutional: absent: Fatigue, Fevers Eyes: absent: Vision Changes ENT: absent: Hearing Changes Respiratory: absent: SOB, Cough Cardiovascular: absent: Chest Pain Gastrointestinal: absent: Abdominal Pain, Nausea, Vomiting Musculoskeletal: Myalgias, Other (+rt flank pain). absent: Arthralgias, Back Pain, Neck Pain, Joint Swelling Skin: absent: Rash, Pruritis Neurological: absent: Headache, Dizziness Psychiatric: absent: Anxiety, Depression, Suicidal Ideation Physical Exam Vital Signs Reviewed: Yes Vital Signs Temp Pulse Resp BP Pulse Ox 03/15/18 13:28 98 F 80 18 131/87 98 03/15/18 11:37 97.8 F 94 H 19 122/83 97 Temperature: Afebrile Blood Pressure: Normal Pulse: Regular Respiratory Rate: Normal Appearance: Positive for: Well-Appearing, Non-Toxic, Comfortable Pain Distress: Severe Mental Status: Positive for: Alert and Oriented X 3 - Systems Exam Head: Present: Atraumatic, Normocephalic Pupils: Present: PERRL Extroacular Muscles: Present: EOMI Conjunctiva: Present: Normal Mouth: Present: Moist Mucous Membranes Nose (External): Present: Atraumatic. No: Abrasion, Contusion, Laceration Nose (Internal): Present: Normal Inspection, No Active Bleeding. No: Rhinorrhea , Septal Hematoma, Epistaxis Neck: Present: Normal Range of Motion Respiratory/Chest: Present: Clear to Auscultation, Good Air Exchange. No: Respiratory Distress, Accessory Muscle Use Cardiovascular: Present: Regular Rate and Rhythm, Normal S1, S2. No: Murmurs Abdomen: No: Tenderness, Distention, Peritoneal Signs, Rebound, Guarding Back: Present: Normal Inspection, Paraspinal Tenderness (rt. paraspinal lumbar spine). No: CVA Tenderness, Midline Tenderness, Pain with Leg Raise, Decubitus Ulcer Upper Extremity: Present: Normal Inspection. No: Cyanosis, Edema Lower Extremity: Present: Normal Inspection. No: Edema Neurological: Present: GCS=15, CN II-XII Intact, Speech Normal, Motor Func Grossly Intact, Gait Normal, Memory Normal Skin: Present: Warm, Dry, Normal Color. No: Rashes Psychiatric: Present: Alert, Oriented x 3, Normal Insight, Normal Concentration Medical Decision Making ED Course and Treatment: 03/15/18 12:01 Differential: obstrutive renal stone vs. UTI vs. muscular skeletal pain -labs/ua -ct abdomen and pelvis -IVF/toradol -Observe and reassess 03/15/18 14:55 -Urine hcg is negative -CT abdomen and pelvis: No acute intra-abdominal findings. No evidence of urolithiasis -Labs show no significant acute findings -Mg 1.6, Magnesium sulfate 1gm IV ordered -UA show +UTI, IV rocephine ordered. -Pt. has not much pain now, eating and drinking well, will discharge home. -Discharge home with tylenol, flexeril, keflex, follow up with your own pmd and urologist within 2 days, return to the ER for any new or worsening signs or symptoms. - Lab Interpretations Lab Results: 03/15/18 12:10 03/15/18 12:10 Lab Results 03/15/18 13:00: Urine Color Yellow, Urine Appearance Sl cloudy, Urine pH 6.0, Ur Specific [place] 1.025, Urine Protein Negative, Urine Glucose (UA) >=1000, Urine Ketones Negative, Urine Blood Large H, Urine Nitrate Negative, Urine Bilirubin Negative, Urine Urobilinogen 0.2, Ur Leukocyte Esterase Trace H, Urine RBC 5 - 10, Urine WBC 1 - 3, Ur Epithelial Cells 6 - 8, Urine Bacteria Trace 03/15/18 12:10: WBC 6.2, RBC 4.88, Hgb 14.1, Hct 41.6, MCV 85.2, MCH 28.9, MCHC 33.9, RDW 13.8, Plt Count 263, MPV 9.8, Gran % 62.6, Lymph % (Auto) 30.9, [place] % (Auto) 5.0, Eos % (Auto) 1.3 L, Baso % (Auto) 0.2, Gran # 3.85, Lymph # (Auto ) 1.9, [place] # (Auto) 0.3, Eos # (Auto) 0.1, Baso # (Auto) 0.01 03/15/18 12:10: Sodium 141, Potassium 3.8, Chloride 104, Carbon Dioxide 20 L, Anion Gap 21 H, BUN 20, Creatinine 0.6 L, Est GFR ( Amer) > 60, Est GFR ( Non-Af Amer) > 60, Random Glucose 194 H, Calcium 9.2, Magnesium 1.6 L, Total Bilirubin 0.4, AST 29, ALT 10, Alkaline Phosphatase 103, Total Protein 6.9, Albumin 4.1, Globulin 2.8, Albumin/Globulin Ratio 1.5, Lipase 110 03/15/18 11:46: POC Glucose (mg/dL) 165 H - RAD Interpretation Radiology Orders: 03/15/18 11:58 ABD & PELVIS W/O PO OR IV CONT [CT] Stat HISTORY: rt. flank pain COMPARISON: None. TECHNIQUE: Without contrast.. Contrast dose: Radiation dose: Total exam DLP = 1548 mGy-cm. This CT exam was performed using one or more of the following dose reduction techniques: Automated exposure control, adjustment of the mA and/or kV according to patient size, and/or use of iterative reconstruction technique. FINDINGS: LOWER THORAX: Unremarkable. LIVER: Unremarkable. No gross lesion or ductal dilatation. GALLBLADDER AND BILE DUCTS: Unremarkable. PANCREAS: Unremarkable. No gross lesion or ductal dilatation. SPLEEN: Unremarkable. ADRENALS: Unremarkable. No mass. KIDNEYS AND URETERS: Unremarkable. No hydronephrosis. No solid mass. VASCULATURE: Unremarkable. No aortic aneurysm. BOWEL: Unremarkable. No obstruction. No gross mural thickening. APPENDIX: Unremarkable. Normal appendix. PERITONEUM: Unremarkable. No free fluid. No free air. LYMPH NODES: Unremarkable. No enlarged lymph nodes. BLADDER: Unremarkable. REPRODUCTIVE: Unremarkable. BONES: No acute fracture. OTHER FINDINGS: None. IMPRESSION: No acute intra-abdominal findings. No evidence of urolithiasis Composite Bond Worker: Radiologist - Medication Orders Current Medication Orders: Discontinued Medications Sodium Chloride (Sodium Chloride 0.9%) 1,000 mls @ 999 mls/hr IV .Q1H1M STA Stop: 03/15/18 12:58 Last Admin: 03/15/18 12:14 Dose: 999 mls/hr eMAR Start Stop Document 03/15/18 12:14 [place] (Rec: 03/15/18 12:15 [place] [id number] Intravenous Solution Start Date 03/15/18 Start Time 12:14 End Date 03/15/18 End time 13:15 Total Infusion Time 61 Magnesium Sulfate/Dextrose (Magnesium Sulfate 1 Gm/100 Ml D5w) 1 gm in 100 mls @ 100 mls/hr IVPB ONCE ONE Stop: 03/15/18 14:01 Last Admin: 03/15/18 13:14 Dose: 100 mls/hr eMAR Start Stop Document 03/15/18 13:14 [place] (Rec: 03/15/18 13:14 [id number] Intravenous Solution Start Date 03/15/18 Start Time 13:14 End Date 03/15/18 End time 14:14 Total Infusion Time 60 Ceftriaxone Sodium (Rocephin 1 Gram Ivpb) 1 gm in 100 mls @ 200 mls/hr IVPB STAT STA PRN Reason: Protocol Stop: 03/15/18 14:08 Morphine Sulfate (Morphine) 4 mg IVP STAT STA Stop: 03/15/18 11:59 Last Admin: 03/15/18 12:17 Dose: 4 mg MAR Pain Assessment Document 03/15/18 12:17 [place] (Rec: 03/15/18 12:18 [id number] Pain Reassessment Is this a pain reassessment? No Sleep Is patient sleeping during reassessment? No Presence of Pain Presence of Pain Yes Pain Scale Used Pain Scale Used Numeric Location Left, Right or Bilateral Right Upper or Lower Lower Pain Location Body Site Back Description Description Intermittent Intensity of Pain at present 6 IVP Administration Document 03/15/18 12:17 LA (Rec: 03/15/18 12:18 [place] [id number] Charges for Administration # of IVP Administrations 1 - PA / EXTENSION SERVICE SPECIALIST / Resident Statement / has reviewed & agrees with the documentation as recorded. Disposition/Present on Arrival - Present on Arrival Any Indicators Present on Arrival: No History of DVT/PE: No History of Uncontrolled Diabetes: No Urinary Catheter: No History of Decub. Ulcer: No History Surgical Site Infection Following: None - Disposition Have Diagnosis and Disposition been Completed?: Yes Diagnosis: UTI (urinary tract infection), Hematuria Disposition Time: 13:45 Patient Plan: Discharge Patient Problems: Current Active Problems Problem Status Onset UTI (urinary tract infection) Acute Hematuria Acute Condition: IMPROVED Additional Instructions: -Discharge home with tylenol, flexeril, keflex, follow up with your own pmd and urologist within 2 days, return to the ER for any new or worsening signs or symptoms. Prescriptions: Acetaminophen [Pain Reliever] 500 mg PO QID PRN #30 tablet PRN Reason: Other Cephalexin [cephalexin] 500 mg PO QID #28 cap Cyclobenzaprine [Cyclobenzaprine HCl] 10 mg PO TID PRN #21 tab PRN Reason: Other Referrals: Danielle Young DO [Primary Care Provider] - Follow up with primary Blas Mercado MD [Staff Provider] - Follow up with primary Forms: WORK NOTE
[2018-03-15] MEDS ORDERED: Morphine 4 mg/ml ISec IVP STA (11:58)
[2018-03-15] MEDS ORDERED: Sodium Chloride 0.9% 1,000 ML IV STA (11:58)
[2018-03-15 12:26] LABS: BASO # 0.01 K/mm3 (0.0-2.0); BASO % 0.2 % (0.0-3.0); EOS # 0.1 (0.0-0.7); EOS % 1.3 % (1.5-5.0); GRAN # 3.85 (1.4-6.5); GRAN % 62.6 % (50.0-68.0); HEMOGLOBIN 14.1 g/dL (12.0-16.0); LYMPH # 1.9 (1.2-3.4); LYMPH % 30.9 % (22.0-35.0); MEAN CELL VOLUME 85.2 fl (80.0-105.0); MEAN CORPUSCULAR HEMOGLOBIN 28.9 pg (25.0-35.0); MEAN CORPUSCULAR HGB CONC 33.9 g/dl (31.0-37.0); MEAN PLATELET VOLUME 9.8 fl (7.0-11.0); MONO # 0.3 (0.1-0.6); RBC 4.88 10^6/uL (3.5-6.1); RED CELL DISTRIBUTION WIDTH 13.8 % (11.5-14.5); WHITE BLOOD COUNT 6.2 10^3/ul (4.5-11.0)
[2018-03-15 12:36] LABS: ALB/GLOB RATIO 1.5 (1.1-1.8); ALBUMIN 4.1 g/dL (3.0-4.8); ALT/SGPT 10 U/L (7-56); AST/SGOT 29 U/L (14-36); BLOOD UREA NITROGEN 20 mg/dL (7-21); CALCIUM 9.2 mg/dL (8.4-10.5); GFR AFRICAN-AMERICAN > 60; GFR NON-AFRICAN AMERICAN > 60; LIPASE 110 U/L (23-300)
[2018-03-15] MEDS ORDERED: Piperacillin/Tazobact 3.375 gm 100 ML IVPB STA (12:40)
[2018-03-15] MEDS ORDERED: Vancomycin 1gm in NS 250ml 1 GM/250 ML BAG IVPB STA (12:40)
--- NOTE | 2018-03-15 12:57 | CT ---
Date of service: 03/15/2018 PROCEDURE: CT Abdomen and Pelvis without intravenous contrast HISTORY: rt. flank pain COMPARISON: None. TECHNIQUE: Without contrast.. Contrast dose: Radiation dose: Total exam DLP = 1548 mGy-cm. This CT exam was performed using one or more of the following dose reduction techniques: Automated exposure control, adjustment of the mA and/or kV according to patient size, and/or use of iterative reconstruction technique. FINDINGS: LOWER THORAX: Unremarkable. LIVER: Unremarkable. No gross lesion or ductal dilatation. GALLBLADDER AND BILE DUCTS: Unremarkable. PANCREAS: Unremarkable. No gross lesion or ductal dilatation. SPLEEN: Unremarkable. ADRENALS: Unremarkable. No mass. KIDNEYS AND URETERS: Unremarkable. No hydronephrosis. No solid mass. VASCULATURE: Unremarkable. No aortic aneurysm. BOWEL: Unremarkable. No obstruction. No gross mural thickening. APPENDIX: Unremarkable. Normal appendix. PERITONEUM: Unremarkable. No free fluid. No free air. LYMPH NODES: Unremarkable. No enlarged lymph nodes. BLADDER: Unremarkable. REPRODUCTIVE: Unremarkable. BONES: No acute fracture. OTHER FINDINGS: None. IMPRESSION: No acute intra-abdominal findings. No evidence of urolithiasis
[2018-03-15] MEDS ORDERED: Magnesium Sulfate 1 gm in D5W 1 GM/100 ML BAG IVPB ONE (13:02)
[2018-03-15 13:29] VITALS: RESP 18; TEMP 98
[2018-03-15 13:31] LABS: URINE BILIRUBIN NEGATIVE (NEGATIVE); URINE BLOOD LARGE (NEGATIVE); URINE GLUCOSE (UA) >=1000 mg/dL (NEGATIVE); URINE LEUKOCYTE ESTERASE TRACE Leu/uL (NEGATIVE); URINE PROTEIN NEGATIVE mg/dL (<30 mg/dL); URINE UROBILINOGEN 0.2 E.U./dL (<1 E.U./dL)
[2018-03-15 13:36] LABS: URINE APPEARANCE SL CLOUDY (CLEAR); URINE COLOR YELLOW (YELLOW)
[2018-03-15] MEDS ORDERED: cefTRIAXone 1 gm 1 GM/100 ML BAG IVPB STA (13:39)
[2018-03-15 13:44] LABS: URINE BACTERIA TRACE (NEG)
[2018-03-15 23:40] VITALS: BP 128/85; PULSE 81; O2SAT 100
== END 2018-03-15 15:10 | disposition home or self-care (01) ==
LOC: ED 11:22
DX: N39.0 Urinary tract infection, site not specified (principal); R31.9 Hematuria, unspecified; E11.9 Type 2 diabetes mellitus without complications
CPT/HCPCS: 74176; 80053; 81001; 82948; 83690; 83735; 85025; 87040; 87086; 96361; 96365; 96375; 99284; J2270; J3475; J7030

== ENCOUNTER 2018-12-03 10:37 | Emergency (ER) | payer MEDICAID ==
[2018-12-03 10:38] VITALS: BMI 42.0
[2018-12-03 11:02] VITALS: RESP 18; TEMP 98.4
--- NOTE | 2018-12-03 11:23 | ED PDOC ---
Arrival/HPI - General Chief Complaint: Headache Historian: Patient - History of Present Illness Narrative History of Present Illness (Text): 12/03/18 11:24 A 53 year old female, whose past medical history includes diabetes mellitus, asthma, shingles, and gastroparesis, who presents to the ED complaining of a left eye pain for the past week. Patient reports pain is associated with redness and discharge of the left eye. Patient notes seeing her construction manager (Dr. Warren) 2 days ago, who requested blood work which showed normal results. Patient also notes that she saw Dr. Warren again today for worsening of the pain, afterwhich he requested a CT scan of the head and orbits. Patient denies any trauma, fevers, chills, dizziness, numbness, weakness, chest pain, shortness of breath, dyspnea on exertion, cough, abdominal pain, nausea, vomiting, diarrhea, back pain, neck pain, urinary/bowel changes, or any other complaints. Time/Duration: < week Symptom Onset: Gradual Symptom Course: Worsening Activities at Onset: Light Context: Home Associated Symptoms (Text): 12/03/18 12:27 I spoke with . Car Driver reports approximately 1 week history of the left eye pain redness swelling and watery discharge. Patient was seen by the construction manager 2 days ago and again today. Patient was given a prescription for an outpatient CT scan of the head and orbits. She was directed to the emergency department by the heating and cooling technician. I spoke with the construction manager. She had normal blood work 2 days ago. She had normal pressures in the office today. He will follow-up if the CT scans of the head and orbits are normal. Past Medical History - Provider Review Nursing Documentation Reviewed: Yes - Infectious Disease Hx of Infectious Diseases: None - Tetanus Immunization Tetanus Immunization: Unknown - Cardiac Hx Cardiac Disorders: Yes (palpitations) Hx Angina: No Hx Cardiac Arrhythmia: No Hx Circulatory Problems: No Hx Congestive Heart Failure: No Hx Heart Murmur: No Hx Heart Transplant: No Hx Hypertension: No Hx Internal Defibrillator: No Hx Mitral Valve Prolapse: No Hx Pacemaker: No Hx Peripheral Edema: No Hx Peripheral Vascular Disease: No - Pulmonary Hx Respiratory Disorders: Yes Hx Asthma: Yes Hx Bronchitis: No Hx Chronic Obstructive Pulmonary Disease (COPD): No Hx Emphysema: No Hx Pneumonia: No Hx Respiratory Aspiration: No Hx Respiratory Tract Infection: No Hx Sleep Apnea: No Hx Tuberculosis: No - Neurological Hx Neurological Disorder: Yes Hx Alzheimer's Disease: No HX Cerebrovascular Accident: No Hx Dementia: No Hx Dizziness: Yes Hx Meningitis: No Hx Migraine: No Hx Parkinson's Disease: No Hx Seizures: No Hx Transient Ischemic Attacks (TIA): No - HEENT Hx HEENT Disorder: Yes (wears glasses) Hx Blind: No Hx Cataracts: Yes Hx Deafness: No Hx Difficulty Chewing: No Hx Epistaxis: No Hx Glaucoma: No Hx Macular Degeneration: No - Renal Hx Renal Disorder: No Hx Dialysis: No Hx Kidney Stones: No Hx Neurogenic Bladder: No Hx Pyelonephritis: No Hx Renal Cancer: No Hx Renal Failure: No - Endocrine/Metabolic Hx Endocrine Disorders: Yes Hx Adrenal Cancer: No Hx Diabetes Insipidus: No Hx Diabetes Mellitus Type 1: No Hx Diabetes Mellitus Type 2: Yes Hx Hyperthyroidism: No Hx Hypothyroidism: No Hx Systemic Lupus Erythematosus: No - Hematological/Oncological Hx Blood Disorders: Yes Hx AIDS: No Hx Anemia: No Hx Cancer: No Hx Chemotherapy: No Hx Cirrhosis: No Hx Hemophilia: No Hx Hepatitis A: No Hx Hepatitis B: No Hx Hepatitis C: No Hx Metastasis: No Hx Shingles: Yes Hx Sickle Cell Disease: No Hx Unexplained Bleeding: No - Integumentary Hx Dermatological Disorder: No Hx Basal Cell Carcinoma: No Hx Eczema: No Hx Melanoma: No Hx Psoriasis: No Hx Squamous Cell Carcinoma: No - Musculoskeletal/Rheumatological Hx Musculoskeletal Disorders: Yes Hx Arthritis: Yes Hx Back Pain: No Hx Degenerative Joint Disease: No Hx Falls: No Hx Fractures: No Hx Gout: No Hx Herniated Disk: No Hx Myasthenia Gravis: No Hx Osteoarthritis: No Hx Osteomyelitis: No Hx Osteoporosis: No Hx Rhabdomyolysis: No Hx Spinal Stenosis: No Hx Unsteady Gait: No - Gastrointestinal Hx Gastrointestinal Disorders: Yes (Vomiting and diarrhea. Hemorrhoids.) Hx Colostomy: No Hx Crohn's Disease: No Hx Diverticulitis: No Hx Gall Bladder Disease: No Hx Gastroesophageal Reflux: Yes Hx Gastrointestinal Ulcer: No Hx Ileostomy: No Hx Liver Failure: No Hx Pancreatitis: No HX Swallowing Problems: No - Genitourinary/Gynecological Hx Genitourinary Disorders: Yes Hx Hematuria: No Hx Incontinence: No Hx Prostate Problems: No Hx Sexually Transmitted Diseases: No Hx Urinary Tract Infection: Yes - Psychiatric Hx Psychophysiologic Disorder: Yes Hx Anxiety: Yes Hx Bipolar Disorder: No Hx Depression: Yes Hx Emotional Abuse: No Hx Hallucinations: No Hx Panic Disorder: No Hx Post Traumatic Stress Disorder: No Hx Psychosis: No Hx Physical Abuse: No Hx Schizophrenia: No Hx Sexual Abuse: No Hx Substance Use: No - Past Surgical History Past Surgical History: No Previous - Surgical History Hx Amputation: No Hx Appendectomy: No Hx Cardiac Catheterization: No Hx Cholecystectomy: No Hx Coronary Stent: No Hx Gastric Bypass Surgery: No Hx Hysterectomy: No Hx Joint Replacement: No Hx Kidney Transplant: No Hx Liver Transplant: No Hx Mastectomy: No Hx Musculoskeletal Surgery: No Hx Open Heart Surgery: No Hx Orthopedic Surgery: No Hx Splenectomy: No Hx Valve Replacement: No - Anesthesia Hx Anesthesia: Yes Hx Anesthesia Reactions: No Hx Malignant Hyperthermia: No - Suicidal Assessment Feels Threatened In Home Enviroment: No Family/Social History - Physician Review Nursing Documentation Reviewed: Yes Family/Social History: Unknown Family HX Smoking Status: Never Smoked Hx Alcohol Use: No Hx Substance Use: No Hx Substance Use Treatment: No Allergies/Home Meds Allergies/Adverse Reactions: Allergies naproxen Allergy (Verified 03/15/18 11:31) RASH Home Medications: Home Meds Medication Instructions Recorded Confirmed Albuterol HFA [Ventolin HFA 90 60 mcg IH DAILY 05/20/17 12/03/18 mcg/actuation (8 g)] Benzonatate 200 mg PO DAILY 05/20/17 12/03/18 Loratadine [Claritin] 10 mg PO DAILY 05/20/17 12/03/18 Lovastatin 40 mg PO DAILY 05/20/17 12/03/18 Metformin HCl [Glucophage] 850 mg PO BID 05/20/17 12/03/18 Montelukast [Singulair] 10 mg PO DAILY 05/20/17 12/03/18 Ondansetron [Zofran Tab] 4 mg PO DAILY 05/20/17 12/03/18 QUEtiapine [SEROquel] 200 mg PO HS 05/20/17 12/03/18 Ranitidine HCl [Zantac] 150 mg PO BID 05/20/17 12/03/18 Dexamethasone/Tobramycin [Tobradex 2 drop OP BID 12/03/18 12/03/18 0.1%-0.3% 2.5 Ml] Difluprednate [Durezol] 5 ml OP QID 12/03/18 12/03/18 Ertugliflozin Pidolate [Steglatro] 15 mg PO DAILY 12/03/18 12/03/18 Fluticasone Propionate [Flovent 220 mcg IH HS 12/03/18 12/03/18 Hfa] Valliant-3/Dha/Epa/Fish Oil [Cvs Fish 1,000 mg PO BID 12/03/18 12/03/18 Oil 1,000 mg Softgel] Review of Systems - Physician Review All systems were reviewed & negative as marked: Yes - Review of Systems Constitutional: absent: Fatigue, Fevers Eyes: Eye Pain (Left eye pain with redness and discharge). absent: Vision Changes, Photophobia ENT: absent: Hearing Changes Respiratory: absent: SOB, Cough Cardiovascular: absent: Chest Pain Gastrointestinal: absent: Abdominal Pain, Diarrhea, Nausea, Vomiting Genitourinary Female: absent: Dysuria, Hematuria Musculoskeletal: absent: Back Pain, Neck Pain Skin: absent: Rash Neurological: Headache. absent: Dizziness, Focal Weakness, Gait Changes Endocrine: absent: Diaphoresis Hemo/Lymphatic: absent: Adenopathy Psychiatric: absent: Anxiety, Depression Physical Exam Vital Signs Reviewed: Yes Vital Signs Temp Pulse Resp BP Pulse Ox 12/03/18 11:01 98.4 F 96 H 18 145/78 95 Temperature: Afebrile Blood Pressure: Normal Pulse: Regular Respiratory Rate: Normal Appearance: Positive for: Well-Appearing, Non-Toxic, Uncomfortable Mental Status: Positive for: Alert and Oriented X 3 - Systems Exam Head: Present: Atraumatic, Normocephalic Pupils: Present: PERRL, Other (Visual acuity normal, eye pressures normal according to construction manager.) Extroacular Muscles: Present: EOMI Conjunctiva: Present: Injected, Other (erythematic with clear water discharge left, right normal) Mouth: Present: Moist Mucous Membranes Pharnyx: No: ERYTHEMA, EXUDATE, TONSILS ENLARGED Neck: Present: Normal Range of Motion Respiratory/Chest: Present: Clear to Auscultation, Good Air Exchange. No: Respiratory Distress, Accessory Muscle Use Cardiovascular: Present: Regular Rate and Rhythm, Normal S1, S2. No: Murmurs Abdomen: No: Tenderness, Distention, Peritoneal Signs Upper Extremity: Present: Normal Inspection. No: Cyanosis, Edema Lower Extremity: Present: Normal Inspection. No: Edema Neurological: Present: GCS=15, CN II-XII Intact, Speech Normal, Motor Func Grossly Intact, Normal Sensory Function, Normal Cerebellar Funct, Gait Normal Skin: Present: Warm, Dry, Normal Color. No: Rashes Psychiatric: Present: Alert, Oriented x 3, Normal Insight, Normal Concentration Medical Decision Making ED Course and Treatment: 12/03/18 11:36 Impression: A 53 year old female who presents to the ED for left eye pain with associated redness and discharge. Plan: -- CT head w/o contrast -- CT orbits/facials w/o contrast -- Urine test -- Reassess and disposition Prior Visits: Notes and results from previous visits were reviewed. Progress Notes: 12/03/18 11:[address] Warren, who requests CT head/orbits. 12/03/18 12:30 CT scan of the head is read by the radiologist shows no acute findings. CT scan of the orbits as read by the radiologist showed left-sided periorbital swelling. Discharged home to follow-up with Dr. Warren. Follow-up in the ER as needed. - Scribe Statement The provider has reviewed the documentation as recorded by the Danica Bynre Provider Scribe Attestation: All medical record entries made by the Scribe were at my direction and personally dictated by me. I have reviewed the chart and agree that the record accurately reflects my personal performance of the history, physical exam, medical decision making, and the department course for this patient. I have also personally directed, reviewed, and agree with the discharge instructions and disposition. Disposition/Present on Arrival - Present on Arrival Any Indicators Present on Arrival: No History of DVT/PE: No History of Uncontrolled Diabetes: No Urinary Catheter: No History of Decub. Ulcer: No History Surgical Site Infection Following: None - Disposition Have Diagnosis and Disposition been Completed?: Yes Diagnosis: Conjunctivitis Disposition: HOME/ ROUTINE Disposition Time: 12:31 Patient Plan: Discharge Condition: GOOD Discharge Instructions (ExitCare): Conjunctivitis ([place]) Additional Instructions: Eyedrops as already given by . Follow-up with . Forms: [employer] (Armenian)
--- NOTE | 2018-12-03 12:15 | CT ---
Date of service: 12/03/2018 PROCEDURE: CT HEAD WITHOUT CONTRAST. HISTORY: davila COMPARISON: Noncontrast head CT performed 05/21/17 TECHNIQUE: Axial computed tomography images were obtained through the head/brain without intravenous contrast. Radiation dose: Total exam DLP = 911.8 mGy-cm. This CT exam was performed using one or more of the following dose reduction techniques: Automated exposure control, adjustment of the mA and/or kV according to patient size, and/or use of iterative reconstruction technique. FINDINGS: HEMORRHAGE: No intracranial hemorrhage. BRAIN: No mass effect or edema. The hein-white matter differentiation appears intact. Please note that MRI with diffusion imaging is more sensitive in the detection of acute ischemic event. VENTRICLES: No hydrocephalus. CALVARIUM: Unremarkable. PARANASAL SINUSES: Unremarkable as visualized. No significant inflammatory changes. MASTOID AIR CELLS: Unremarkable as visualized. No inflammatory changes. OTHER FINDINGS: None. IMPRESSION: No acute intracranial pathology identified.
--- NOTE | 2018-12-03 12:22 | CT ---
Date of service: 12/03/2018 CT orbits without IV contrast Indication: IRVING Comparison: None available Technique: Axial computed tomography images were obtained of the orbits without the use of intravenous contrast. Coronal and sagittal reformatted images were generated and reviewed. This CT exam was performed using 1 or more of the following dose reduction techniques: Automated exposure control, adjustment of the MAA and/or kV according to patient size, and/or use of iterative reconstruction technique. Radiation dose: Total exam DLP = 750.02 mGy-cm. Findings: Streak artifact from dental hardware. Left sided preseptal swelling. The facial bones appear unremarkable and without acute displaced fracture. The orbits appear unremarkable. The temporomandibular joints appear located. The mastoid air cells appear clear. The paranasal sinuses appear clear. The visualized brain appears unremarkable. Soft tissues appear unremarkable. Impression: Marked left preseptal swelling; correlate with ophthalmic examination. No acute displaced fracture identified.
[2018-12-03 13:01] VITALS: BP 158/71; PULSE 86; O2SAT 97
== END 2018-12-03 13:13 | disposition home or self-care (01) ==
LOC: ED 10:37
DX: H10.9 Unspecified conjunctivitis (principal)